=== PATIENT | female | born 1950 | race Caucasian/White ===

== ENCOUNTER → 2019-01-05 | Outpatient (CLI) | payer OTHER ==
[~2019-01-05] MED LIST: ANACIN; CLOB.05TC; DESO.05TCA; ESTR2 PO; FISH1000 PO; Fiorinal Capsu1 EACH; GARLIC PO; MEDR2.5 PO; METROGEL55 GM; MOVE FREE JOIN1 EACH; MULTIPLE VITAMIN; NABU750 PO; NORITATE; OMEPRAZOLE MAGN20 MG PO; PROP60 PO; SULFACETAMIDE; TURMERIC; [UNRECOGNIZED DRUG - OTHER]
[2019-01-07 15:07] LABS: HPV 16 Negative (Negative); HPV 18 Negative (Negative); HPV OTHER HR TYPES Negative (Negative)
== END | disposition home or self-care (01) ==
LOC: LAB SHORT 15:51 → LAB 15:51
PROVIDERS: Nurse Practitioner Women's Health
DX: Z12.4 Encounter for screening for malignant neoplasm of cervix (principal); Z91.89 Other specified personal risk factors, not elsewhere classified
CPT/HCPCS: 87624; G0123

== ENCOUNTER 2021-10-14 23:12 | Inpatient (IN) | payer OTHER ==
[~2021-10-14] VITALS: Ht 170.2 cm; Wt 114.9 kg
[~2021-10-14 23:12] MED LIST changes: +FAMO20 PO
[2021-10-15 00:23] LABS: BASOPHILS PERCENT AUTO 1 % (0-2); EOSINOPHILS ABSOLUTE AUTO 0.07 K/mm3 (0.00-0.68); EOSINOPHILS PERCENT AUTO 0 % (0-6); Hematocrit 50.9 % (33.0-51.0); Hemoglobin 15.2 g/dL (11.5-16.0); IMMATURE GRAN ABSOLUTE AUTO 0.38 K/mm3 (0.00-0.10); IMMATURE GRAN PERCENT AUTO 2 % (0-1); LYMPHOCYTES ABSOLUTE AUTO 1.44 K/mm3 (0.84-5.20); LYMPHOCYTES PERCENT AUTO 7 % (21-46); MONOCYTES ABSOLUTE AUTO 1.69 K/mm3 (0.16-1.47); MONOCYTES PERCENT AUTO 8 % (4-13); Mean Corpuscular HGB 29.3 pg (26.0-34.0); Mean Corpuscular HGB Conc 29.9 g/dL (31.5-36.5); Mean Corpuscular Volume 98 fL (80-100); NEUTROPHILS ABSOLUTE AUTO 16.43 K/mm3 (1.96-9.15); NEUTROPHILS PERCENT AUTO 82 % (41-73); NRBC ABSOLUTE 0.11 K/mm3 (0.00-0.02); NRBC Auto 0.5 /100 WBC (0.0-0.2); RDW Coefficient Variation 15.2 % (11.7-14.2); RDW Standard Deviation 55.1 fL (35.1-46.3); Red Blood Cell Count 5.19 M/mm3 (3.80-5.20); White Blood Cell Count 20.11 K/mm3 (4.00-11.30)
[2021-10-15 00:38] LABS: Albumin, Blood 2.4 g/dL (3.4-5.0); Albumin/Globulin Ratio 0.5 (0.8-1.8); Bilirubin, Total 1.1 mg/dL (0.1-1.0); Bun/Creatinine Ratio 29.7 (12.0-20.0); Calcium, Blood 9.5 mg/dL (8.5-10.1); Creatinine, Blood 2.59 mg/dL (0.40-1.00); Globulin, Blood 4.6 g/dL (2.2-4.0); Potassium, Blood 4.2 mmol/L (3.5-5.5)
[2021-10-15 00:40] LABS: Mean Platelet Volume 13.3 fL (9.1-12.4); Platelet Count 118 K/mm3 (150-400)
[2021-10-15 01:00] LABS: Creatine Kinase MB 6.8 ng/mL (0.0-3.6); Creatine Kinase MB Index 1.6 (0.0-4.0)
[2021-10-15 01:20] LABS: Source, Urine Straight Cath
[2021-10-15 01:26] LABS: Appearance, Urine Hazy (Clear); Blood, Urine 1+ (Neg); Color, Urine Yellow (P-Yellow); Glucose Qualitative, Urine Neg (Neg); Ketones, Urine 1+ (Neg); Leukocyte Esterase, Urine 1+ (Neg); Nitrite, Urine Neg (Neg); Protein, Urine 1+ (Neg); Specific Gravity, Urine 1.025 (1.003-1.022); Urobilinogen, Urine 1+ (Normal)
[2021-10-15 01:31] LABS: Bilirubin, Urine 1+ (Neg)
[2021-10-15 01:39] LABS: Bacteria Many /hpf; Red Blood Cells, Urine 0-2 /hpf (0-2); Squamous Epithelial Cells Many /hpf (Few)
[2021-10-15 04:39] LABS: BASOPHILS ABSOLUTE AUTO 0.06 K/mm3 (0.00-0.23); BASOPHILS PERCENT AUTO 0 % (0-2); EOSINOPHILS PERCENT AUTO 0 % (0-6); Hematocrit 45.8 % (33.0-51.0); Hemoglobin 13.3 g/dL (11.5-16.0); IMMATURE GRAN ABSOLUTE AUTO 0.29 K/mm3 (0.00-0.10); IMMATURE GRAN PERCENT AUTO 2 % (0-1); LYMPHOCYTES ABSOLUTE AUTO 1.71 K/mm3 (0.84-5.20); LYMPHOCYTES PERCENT AUTO 9 % (21-46); MONOCYTES ABSOLUTE AUTO 1.59 K/mm3 (0.16-1.47); MONOCYTES PERCENT AUTO 9 % (4-13); Mean Corpuscular HGB 28.8 pg (26.0-34.0); Mean Corpuscular Volume 99 fL (80-100); NEUTROPHILS ABSOLUTE AUTO 14.68 K/mm3 (1.96-9.15); NEUTROPHILS PERCENT AUTO 80 % (41-73); NRBC ABSOLUTE 0.05 K/mm3 (0.00-0.02); NRBC Auto 0.3 /100 WBC (0.0-0.2); Platelet Count 116 K/mm3 (150-400); RDW Coefficient Variation 15.4 % (11.7-14.2); RDW Standard Deviation 56.3 fL (35.1-46.3); Red Blood Cell Count 4.62 M/mm3 (3.80-5.20); White Blood Cell Count 18.33 K/mm3 (4.00-11.30)
[2021-10-15 04:42] LABS: Mean Platelet Volume 13.5 fL (9.1-12.4)
[2021-10-15 05:01] LABS: Bun/Creatinine Ratio 31.7 (12.0-20.0); Calcium, Blood 8.8 mg/dL (8.5-10.1); Creatinine, Blood 2.68 mg/dL (0.40-1.00); Potassium, Blood 3.9 mmol/L (3.5-5.5)
--- NOTE | 2021-10-15 05:57 | NUR ---
PATIENT TRANSFER FROM PCU 10 VIA BED. PATIENT SLEEPING AWAKENS TO SLIGHT STIMULI. WHEN AWAKE ANSWERING QUESTIONS APPROPRIATELY , YET HAS SLIGHT CONFUSION AT TIMES. FALLS TO SLEEP EASILY WHEN UNDISTURBED. PATIENT TRANSFERRED TO ICU BED USING SLIDER SHEET AND PLACED ON ICU MONITORS. LEVOPHED INFUSING 3 MCG FOR HYPOTENSION. BED PADDED FOR WEEPING WOUNDS, UNABLE TO PLACE DRESSING TO WOUNDS DUE TO SIZE AND AREA ON BODY. D5W AT 125 CC/HR INFUSING NEXT CHEM 0800
--- NOTE | 2021-10-15 07:07 | NUR ---
DOCTOR BURDEN IN TO SEE PATIENT, STAT RENAL PANEL AND MAG OBTAINED PLAN TO CALL RESULTS TO DOCTOR BURDEN
--- NOTE | 2021-10-15 07:13 | NUR ---
ER-PCU-ICU PT INITIALLY TX TO PCU 10 FROM ER. TX VIA SLIDER SHEET. PT ALERT AND ORIENTED TO PERSON, PLACE AND YEAR BUT CONFUSED REGARDING THE LAST DAYS/ WEEK EVENTS. PT PALE, TACHYPNEIC, SLIGHTLY HYPOTENSIVE, MILDLY FEBRILE, AND OVERALL IN VERY POOR CONDITION. SEE CHART FOR FULL EXTENT OF WOUNDS/ ULCERS/ RASH. PTS MOUTH EXTREMELY DRY, PLAQUE COVERED. PT UNSURE OF LAST TIME SHE HAD FOOD/ DRINK, ALSO UNSURE OF HOW LONG SHE WAS DOWN AT HOME. PT HAD 22 GA IV IN LEOBARDO THAT HAD INFILTRATED. MULTIPLE NURSES ATTEMPTED PERIPHERAL ACCESS WELL POWERGLIDE WITHOUT SUCCESS. DR UNDERWOOD NOTIFIED FOR CENTRAL LINE. AFTER CL WAS ESTABLISHED PTS BP CONTINUE TO DROP, MAPS IN LOW 50'S. PT ALSO BECOMING MORE TACHYPNEIC, FEBRILE, AND PAINFUL. LOW DOSE LEVOPHED INITIATED IN PCU WHILE AWAITING ICU BED. PT TX TO ICU BED 4. AFTER TX PTS SISTER NOEL NOTIFIED OF PT CONDITION. SHE INFORMED THIS NURSE THAT PT HAD BEEN DIFFICULT TO UNDERSTAND FOR THE PAST COUPLE DAYS BUT DID NOT ADMIT TO BEING DOWN AT HOME UNTIL YESTERDAY AFTERNOON WHEN EMS WAS NOTIFIED. PER ER NURSE REPORT PT WAS COVERED IN FECES AND URINE UPON ARRIVAL, EVIDENTLY DOWN AT HOME FOR UNKNOWN PERIOD OF TIME. ROOM
[2021-10-15 07:21] LABS: Magnesium, Blood 3.3 mg/dL (1.6-2.4)
[2021-10-15 07:26] LABS: Anion Gap 7 mmol/L (6-16); Blood Urea Nitrogen 89 mg/dL (8-24); Bun/Creatinine Ratio 30.5 (12.0-20.0); CO2, Blood 27 mmol/L (21-32); Calcium, Blood 8.6 mg/dL (8.5-10.1); Chloride, Blood 134 mmol/L (98-108); Creatinine, Blood 2.92 mg/dL (0.40-1.00); Glomerular Filtration Rate 17 (60-); Glucose, Blood 169 mg/dL (70-99); Phosphorus, Blood 4.2 mg/dL (2.5-4.9); Potassium, Blood 3.6 mmol/L (3.5-5.5); Sodium, Blood 168 mmol/L (136-145)
[2021-10-15 09:35] LABS: Bun/Creatinine Ratio 32.3 (12.0-20.0); Calcium, Blood 8.2 mg/dL (8.5-10.1); Creatinine, Blood 2.88 mg/dL (0.40-1.00); Potassium, Blood 3.5 mmol/L (3.5-5.5)
[2021-10-15 11:56] LABS: Bun/Creatinine Ratio 31.6 (12.0-20.0); Calcium, Blood 8.6 mg/dL (8.5-10.1); Creatinine, Blood 2.94 mg/dL (0.40-1.00); Potassium, Blood 3.2 mmol/L (3.5-5.5)
--- NOTE | 2021-10-15 12:22 | NUR ---
NAOMI WAS VERY ENGAGING EARLIER IN THE DAY, SHE WAS PLEASANT AND COOPERATIVE. AT THE NOON HOUR WHEN SHE WAS REPOSITIONED SHE WAS THREATENING AND AGGRESSIVE. SHE HAS BEEN SLEEPING ALOT TODAY. REFUSED HER LUNCH. CONTINUES ON THE NOREPI TO TITRATE TO MAP>65. CURRENTLY AT 6MCG/MIN. D5 @ 100ML/HR.
[2021-10-15 13:25] LABS: Magnesium, Blood 3.2 mg/dL (1.6-2.4)
[2021-10-15 13:34] LABS: Anion Gap 9 mmol/L (6-16); Blood Urea Nitrogen 98 mg/dL (8-24); Bun/Creatinine Ratio 34.6 (12.0-20.0); CO2, Blood 25 mmol/L (21-32); Calcium, Blood 8.8 mg/dL (8.5-10.1); Chloride, Blood 127 mmol/L (98-108); Creatinine, Blood 2.83 mg/dL (0.40-1.00); Glomerular Filtration Rate 18 (60-); Glucose, Blood 256 mg/dL (70-99); Phosphorus, Blood 3.7 mg/dL (2.5-4.9); Potassium, Blood 3.2 mmol/L (3.5-5.5); Sodium, Blood 161 mmol/L (136-145)
--- NOTE | 2021-10-15 18:19 | NUR ---
PT'S PANNUS DRESSED WITH ADAPTIC AND ABD DRESSINGS, SKIN IS MOIST AND RED, MICROBLEEDING IN SPOTS, CATHETER CARE DONE, INNER THIGH OF LEFT LEG DRESSED WITH ADAPTIC AND ABD WELL. FEET IN ANKLE BOOTS. PT AWAKENED AND CHATTED DURING THE DRESSING CHANGE, COMPLAINTS OF JUST BEING REALLY TIRED. NOREPI @ 6MCG/MIN, D5 @ 100, LABS DRAWN FOR 1800, WILL CALL TO . MINIMAL URINE OUTPUT THIS SHIFT, SEDIMENT IN TUBING. (200ML OUT)
[2021-10-15 18:20] LABS: Potassium, Blood 3.3 mmol/L (3.5-5.5)
--- NOTE | 2021-10-15 18:45 | NUR ---
CALL TO WITH RESULTS OF 1800 LABS, ORDERS RECEIVED. TOLD HIM OF HER URINE OUTPUT.
--- NOTE | 2021-10-15 23:12 | NUR ---
SHIFT ASSESSMENT ASSUMED CARE OF PT @ 1900. PT SLEEPING IN ROOM, AROUSES WITH VERBAL STIMULI. ALERT AND ORIENTED, FOLLOWING COMMANDS. ABLE MOVE LEGS BUT STRUGGLING TO MOVE TOES/FEET. C/O PAIN TO BACK/ HIPS WITH TURNS, DENIES PAIN AT REST. LEVOPHED GTT INFUSING, NOW @ 4MCG/MIN c MAP >65. ABD SOFT, DISTENDED. SKIN IN POOR CONDITION, SEE PHOTOS IN CHART. TEMP PROBE WALSH PATENT, AFEBRILE. NO BM THUS FAR. PT TOLERATING WATER, WILL TRANSITION DIET APPROPRIATE. CHEMISTRY DRAWN, SENT TO LAB, AWAITING RESULTS TO CONTACT DR. LEWIS. WILL MONITOR CLOSELY.
[2021-10-15 23:30] LABS: Potassium, Blood 3.4 mmol/L (3.5-5.5)
[2021-10-16 04:45] LABS: Hematocrit 41.7 % (33.0-51.0); Hemoglobin 12.3 g/dL (11.5-16.0)
[2021-10-16 04:59] LABS: Albumin, Blood 1.8 g/dL (3.4-5.0); Anion Gap 5 mmol/L (6-16); Blood Urea Nitrogen 73 mg/dL (8-24); Bun/Creatinine Ratio 37.8 (12.0-20.0); CO2, Blood 27 mmol/L (21-32); CPK Creatine Kinase 613 U/L (26-193); Chloride, Blood 121 mmol/L (98-108); Creatinine, Blood 1.93 mg/dL (0.40-1.00); Glomerular Filtration Rate 28 (60-); Glucose, Blood 143 mg/dL (70-99); Phosphorus, Blood 2.3 mg/dL (2.5-4.9); Potassium, Blood 3.7 mmol/L (3.5-5.5); Sodium, Blood 153 mmol/L (136-145)
--- NOTE | 2021-10-16 06:17 | NUR ---
SHIFT SUMMARY PT ALERT AND ORIENTED, MORE SENSIBLE THIS AM. SHE SEEMS TO BE CLEARING UP, INQUIRING ABOUT HER WOUNDS WELL EVENTS LEADING UP TO HER WORSENING CONDITION. WOUNDS CLEANSED AND REDRESSED. PT REMAINS ON LEVOPHED, CURRENTLY 3MCG/MIN c MAP >65. TEMP PROBE DRAINING SCOTTIE URINE, OUTPUT INCREASING, AFEBRILE. NO BM. REPORT TO ONCOMING NURSE.
--- NOTE | 2021-10-16 10:30 | NUR ---
ANTOINETTERN FROM WOUND CENTER, MADY PAYNE,CPT AND I WERE ABLE TO TURN AND REPOSITION DONTAE WHILE ASSESSING HER WOUNDS, SHE TOLERATED THE MOVEMENT AND THE EXAM VERY WELL. SHE WAS HELPFUL POSSIBLE. ORANGE PASTE AND MICONAZOLE POWDER WAS SMEARED THROUGHOUT THE PANNUS AND THE INNER THIGHS, ADAPTIC AND ABD DRESSINGS WERE PLACED TO HELP KEEP THE SKIN OFF OF SKIN. DONTAE EXPRESSED THAT THE PASTE AND THE POWDER "FELT GOOD". GUEST SERVICES REPRESENTATIVE RECOMMENDS ADVANCING DIET AND ADDING CORINA THERAPY.
--- NOTE | 2021-10-16 10:58 | NUR ---
DONTAE'S SISTER NOEL HAS CALLED AND IS VISITING VIA PHONE WITH HER.
--- NOTE | 2021-10-16 11:40 | NUR ---
WOUND CARE. ANTIFUNGAL AND BARRIER CREAM TO PANNUS AND LOYD AREA. SPOKE WITH DR. CAPPS HIS PLAN IS TO DEBRIDE BEDSIDE OR SX CONSULT TO BLE AND BUTTOCK WOUNDS
[2021-10-16 13:29] LABS: Potassium, Blood 3.4 mmol/L (3.5-5.5)
--- NOTE | 2021-10-16 14:57 | NUR ---
WAS HERE TO DEBRIDE THE ANKLE WOUNDS, PATIENT SLEPT THROUGH THE ENTIRE PROCESS, WOUNDS WERE DRESSED WITH XEROFORM AND NON ADHERENT PAD FOLLOWED BY SRAVANTHI. HE ASKED THAT WE CHANGE THE DRESSINGS TWICE DAILY. LOOKING TO GET ROLANDO FROM WOUND CLINIC FOR THERAPY TOMORROW. PLAN IS TO ATTEMPT SOME DEBRIDEMENT OF THE BUTTOCKS THEN.
--- NOTE | 2021-10-16 17:28 | NUR ---
DONTAE IS HAVING A BIT OF TROUBLE WITH HER STOMACH, ORDERED PEPCID BID. PT GIVEN REGULAR DINNER TONIGHT, SHE IS STATING THAT SHE IS SO DRY THAT IT IS HARD TO MAKE SALIVA TO CHEW HER FOOD. SHE IS TAKING IN WATER AND SOME PEPSI WHEN SHE ISN'T SLEEPING. MOUTH MOISTURE AND CHAPSTICK GIVEN FOR HER USE. SHE IS CURRENTLY ON SB WITH THE LEVOPHED, D5 @ 75 ML/HR. SHE IS MAKING URINE, NEARLY 3X WHAT WE HAD IN ONE SHIFT YESTERDAY. COLOR STILL PALE, BUT IMPROVING. MENTATION AND CLARITY ARE IMPROVED TODAY WELL. SHE DOES STILL ADMIT TO BEING TIRED.
--- NOTE | 2021-10-16 20:57 | NUR ---
ASSUMED CARE PT WAS SLEEPING AND WOKE EASILY. PT STATED SHE WAS NOT IN ANY PAIN. PT'S HR IS IN THE 80-90S, SBP IN THE 100'S WITH MAP >65. CLEAR LUNG SOUNDS, SPO2 >92%. PT RESPONDED APPROPRIATELY WITH SOME SLURRING AND WAS ALERT AND ORIENTED X4.
--- NOTE | 2021-10-16 22:21 | NUR ---
UPDATE CHANGED DRESSINGS ON ANKLE WITH MEDIHONEY, NON ADHESIVE, KERLIX, AND COBAND. CALAZIME AND ANTIFUNGAL POWDER APPLIED UNDER PANNUS WITH ABD'S OVER AREA.
--- NOTE | 2021-10-16 23:11 | NUR ---
CALLED DR LEWIS ABOUT SODIUM LEVELS AND RECIEVED VERBAL ORDER TO TITRATE DEX DRIP FROM 75 DOWN TO 50
[2021-10-17 04:04] LABS: Hematocrit 35.7 % (33.0-51.0); Hemoglobin 10.8 g/dL (11.5-16.0)
[2021-10-17 04:22] LABS: Albumin, Blood 1.6 g/dL (3.4-5.0); Anion Gap 2 mmol/L (6-16); Blood Urea Nitrogen 46 mg/dL (8-24); Bun/Creatinine Ratio 49.5 (12.0-20.0); CO2, Blood 29 mmol/L (21-32); Calcium, Blood 7.8 mg/dL (8.5-10.1); Chloride, Blood 115 mmol/L (98-108); Creatinine, Blood 0.93 mg/dL (0.40-1.00); Glomerular Filtration Rate 67 (60-); Glucose, Blood 132 mg/dL (70-99); Magnesium, Blood 2.6 mg/dL (1.6-2.4); Potassium, Blood 3.9 mmol/L (3.5-5.5); Sodium, Blood 146 mmol/L (136-145)
--- NOTE | 2021-10-17 06:35 | NUR ---
SHIFT SUMMARY PT IS ALERT AND ORIENTED X4. PT'S HR HAS BEEN IN THE 80-90S THROUGHOUT THE NIGHT. SBP IN THE 110S MAP >65. PT SPO2 >92% ON RA. SHE HAD SOME PEPSI AT THE BEGINNING OF THE NIGHT AND HAS BEEN DRINKING WATER THROUGHOUT THE NIGHT. PT EXPRESSED THAT SHE FELT SOME TINGLING IN HER LEGS WHILE REPOSITIONING.
--- NOTE | 2021-10-17 14:07 | NUR ---
ASSUMED CARE OF PT @ 0700 PT SLEEPING IN ROOM. D5W RUNNING @ 50 MLS/HR. NO VISITORS IN THE ROOM YET TODAY. WALSH CATH DRAINING TO GRAVITY. - BURDEN TO ROOM @ 1015 TO PERFORM DEBRIDEMENT TO LEFT BUTTOCKS. PT PROPERLY MEDICATED FOR THE PROCEDURE PER DR ORDERS (SEE EMAR). WOUND PACKED WITH CALCIUM ALGINATE, ABD PAD OVER AND FAOM PAD TO SECURE.
--- NOTE | 2021-10-17 17:38 | NUR ---
END OF SHIFT SUMMARY A/O X4. SLURRED SPEECH. LSCBT, DIMINISHED IN LOWER BILATERALLY. PT COMPLAINS OF PAINFUL BLADDER SPASMS WITH URGE TO URINATE. WALSH CATHETER DRAINING TO GRAVITY. NO BOWEL MOVEMENT THIS SHIFT. WOUND DEBRIDEMENT DONE TO LEFT BUTTOCKS. WOUND PACKED WITH CALCIUM ALGINATE WITH ABD DRESSING TO COVER AND FOAM STICKY DRESSING TO SECURE. D5W RUNNING AT 50 MLS/HR.
--- NOTE | 2021-10-17 19:00 | NUR ---
ASSUMED CARE OF PATIENT AT THIS TIME. PATIENT RESTING. TURNED PATIENT WITH ASSIST AND CHANGED DRESSINGS. PATIENT TOLERATED WITH SOME PAIN. TYLENOL GIVEN PER EMAR. VSS MT TORRES RN
[2021-10-18 04:24] LABS: Hematocrit 34.6 % (33.0-51.0); Hemoglobin 10.3 g/dL (11.5-16.0)
[2021-10-18 04:48] LABS: Albumin, Blood 1.5 g/dL (3.4-5.0); Anion Gap 4 mmol/L (6-16); Blood Urea Nitrogen 34 mg/dL (8-24); Bun/Creatinine Ratio 37.3 (12.0-20.0); CO2, Blood 29 mmol/L (21-32); Calcium, Blood 8.2 mg/dL (8.5-10.1); Chloride, Blood 114 mmol/L (98-108); Creatinine, Blood 0.91 mg/dL (0.40-1.00); Glomerular Filtration Rate 68 (60-); Glucose, Blood 121 mg/dL (70-99); Magnesium, Blood 2.6 mg/dL (1.6-2.4); Phosphorus, Blood 2.1 mg/dL (2.5-4.9); Potassium, Blood 3.8 mmol/L (3.5-5.5); Sodium, Blood 147 mmol/L (136-145)
--- NOTE | 2021-10-18 05:33 | NUR ---
SHIFT SUMMARY NO EVENTS THROUGHOUT SHIFT. PATIENT RESTED. TURNED Q2. VSS, WOUND DRESSING CHANGED PER ORDER. ORDERS RECIEVED TO TRANSFER PATIENT TO PCU. AZALEA TORRES RN
--- NOTE | 2021-10-18 18:23 | NUR ---
SHIFT SUMMARY NO ACUTE EVENTS THIS SHIFT, VSS. PT ALERT AND COOPERATIVE WITH CARE. PT CAN BE FORGETFUL AT TIMES. PT UP TO EDGE OF BED FOR LUNCH. IV FLUIDS RUNNING PER EMAR. DR. CAPPS AT BEDSIDE TODAY FOR WOUND CARE, DRESSING CHANGE AND DEBRIDEMENT. MEDIHONEY AND CALCIUM ALGINATE APPLIED TO WOUNDS AND COVERED WITH NON-ADHERENT PADS AND ABD PADS. PT WENT TO IMAGING THIS EVENING, RETURNED TO UNIT WITHOUT EVENT. WALSH DRAINING TO GRAVITY. PO WATER INTAKE ENCOURAGED. PT REPOSITIONED BY STAFF THROUGHOUT SHIFT.
[2021-10-19 05:45] LABS: Hematocrit 33.4 % (33.0-51.0); Hemoglobin 10.5 g/dL (11.5-16.0)
[2021-10-19 05:56] LABS: Albumin, Blood 1.6 g/dL (3.4-5.0); Anion Gap 5 mmol/L (6-16); Blood Urea Nitrogen 28 mg/dL (8-24); Bun/Creatinine Ratio 33.7 (12.0-20.0); CO2, Blood 29 mmol/L (21-32); Calcium, Blood 8.2 mg/dL (8.5-10.1); Chloride, Blood 109 mmol/L (98-108); Creatinine, Blood 0.83 mg/dL (0.40-1.00); Glomerular Filtration Rate 76 (60-); Glucose, Blood 113 mg/dL (70-99); Magnesium, Blood 2.2 mg/dL (1.6-2.4); Phosphorus, Blood 2.3 mg/dL (2.5-4.9); Potassium, Blood 3.6 mmol/L (3.5-5.5); Sodium, Blood 143 mmol/L (136-145)
--- NOTE | 2021-10-19 06:02 | NUR ---
SHIFT SUMMARY Assumed care of pt at 1900. A/Ox4. C/o R flank/hip pain and general low buttock pain. Maintains over 95% on RA, LS clear on top and dim at bases. RAHMAN. SR 70's on tele. VSS. 3+ pitting edema bl pedals, 2+ for ble and trace generalized edema. Hypoactive bowel tones. Denies N/V, CP/pressure. Granda draining to gravity clear yellow urine. Extensive perianal, buttock, and pannus wounds - see chart for photos. Wound care BID per orders to buttocks, perianal, pannus, and ankles, medicated with pain med PRN prior with good relief. Q2 turns from side to side, Kpad applied to low back to help with spasms. Will report to dayshift JOSY
[2021-10-19 12:39] LABS: Influenza A, PCR NEGATIVE (NEGATIVE); Influenza B, PCR NEGATIVE (NEGATIVE); Resp Syncytial Virus, PCR NEGATIVE (NEGATIVE); SARS-Cov-2 (COVID-19) PCR, MMC NEGATIVE (NEGATIVE)
--- NOTE | 2021-10-19 15:24 | NUR ---
WOUND CARE: WOUND CARE HAS BEEN COMPLETED PER ORDERS W/ASSISTANCE OF ANTOINETTE (WOUND CARE NURSE). PT TOLERATES WELL, REPOSITIONED ON RIGHT SIDE, RESTING QUIETLY WITH EYES CLOSED.
--- NOTE | 2021-10-19 16:01 | NUR ---
ASSUMED CARE: REPORT RECIEVED FROM MARVIN FERRIS. PT RESTING QUIETLY AT THIS TIME. NO ACUTE NEEDS OR CONCERNS.
--- NOTE | 2021-10-19 16:05 | NUR ---
SHIFT SUMMARY: PT LETHARGIC AT TIMES, AROUSES EASILY TO STAFF IN ROOM, ORIENTEDx4, COOPERATIVE W/CARE. O2 SATS MAINTAINED >93% ON RA. SR IN 90s ON MONITOR. TEMP WALSH PATENT, DRAINING YELLOW COLORED URINE TO GRAVITY. PT W/EXTENSIVE WOUNDS, PHOTOS IN CHART, WOUND CARE COMPLETED W/PLAN FOR I&D OF PERIANAL AREA TOMORROW, PT TO BE NPO AT MIDNIGHT. PT REPOSITIONED PER PROTOCOL. AT THIS TIME, PT RESTING QUIETLY IN BED, CALL LIGHT WITHIN REACH. REPORT GIVEN TO JOSY PRIETO TO ASSUME CARE OF PT.
--- NOTE | 2021-10-19 18:44 | NUR ---
SHIFT SUMMARY: WOUND CARE PERFORMED BY EMTS THIS SHIFT. NEW ORDERS IN PLACE TO BE STARTED THIS EVENING. I AND D TO BE DONE TOMORROW. PT DENIES NEEDS OR CONCERNS AT THIS TIME.
[2021-10-20 03:33] LABS: Hematocrit 31.7 % (33.0-51.0); Hemoglobin 9.8 g/dL (11.5-16.0); Mean Corpuscular HGB 29.5 pg (26.0-34.0); Mean Corpuscular HGB Conc 30.9 g/dL (31.5-36.5); Mean Corpuscular Volume 96 fL (80-100); NRBC ABSOLUTE 0.06 K/mm3 (0.00-0.02); NRBC Auto 0.7 /100 WBC (0.0-0.2); Platelet Count 79 K/mm3 (150-400); RDW Coefficient Variation 14.4 % (11.7-14.2); RDW Standard Deviation 49.1 fL (35.1-46.3); Red Blood Cell Count 3.32 M/mm3 (3.80-5.20); White Blood Cell Count 9.19 K/mm3 (4.00-11.30)
[2021-10-20 03:50] LABS: Albumin, Blood 1.5 g/dL (3.4-5.0); Anion Gap 3 mmol/L (6-16); Blood Urea Nitrogen 23 mg/dL (8-24); Bun/Creatinine Ratio 30.7 (12.0-20.0); CO2, Blood 30 mmol/L (21-32); Calcium, Blood 8.1 mg/dL (8.5-10.1); Chloride, Blood 111 mmol/L (98-108); Creatinine, Blood 0.75 mg/dL (0.40-1.00); Glomerular Filtration Rate 86 (60-); Glucose, Blood 109 mg/dL (70-99); Magnesium, Blood 2.1 mg/dL (1.6-2.4); Phosphorus, Blood 2.6 mg/dL (2.5-4.9); Potassium, Blood 3.5 mmol/L (3.5-5.5); Sodium, Blood 144 mmol/L (136-145)
[2021-10-20 04:10] LABS: BAND PERCENT MAN 15 % (0-8); BASOPHILS PERCENT MAN 0 % (0-2); EOSINOPHILS ABSOLUTE MAN 0.18 K/mm3 (0.00-0.68); EOSINOPHILS PERCENT MAN 2 % (0-6); LYMPHOCYTES % ATYPICAL MANUAL 1 % (0-0); LYMPHOCYTES ABSOLUTE MAN 1.56 K/mm3 (0.84-5.20); LYMPHOCYTES PERCENT MAN 16 % (21-46); MONOCYTES ABSOLUTE MAN 0.45 K/mm3 (0.16-1.47); MONOCYTES PERCENT MAN 5 % (4-13); MYELOCYTE ABSOLUTE MAN 0.09 K/mm3 (0.00-0.00); MYELOCYTE PERCENT MAN 1 % (0-0); NEUTROPHILS ABSOLUTE MAN 6.89 K/mm3 (1.96-9.15); SEG NEUTROPHILS PERCENT MAN 60 % (41-73); TOTAL CELLS COUNTED 100
--- NOTE | 2021-10-20 06:02 | NUR ---
SHIFT SUMMARY Patients buttock and pannus wounds were cleaned and redressed per orders. VSS. Slept for most of the night. NPO since midnight. No acute changes. Will report to dayshift RN.
--- NOTE | 2021-10-20 17:26 | NUR ---
SHIFT SUMMARY: PT CONTINUES A&Ox4, MAINTAINS O2 SATS >93% ON RA WHILE AWAKE AND 2L NC WHILE ASLEEP. SR/ST ON MONITOR W/RATE 90-100. PT NPO UNTIL DR CROW TO BEDSIDE FOR EVAL. PER DR CROW, NO I&D FOR TODAY, CT ORDER PLACED FOR TOMORROW AM AND PT TO BE NPO AT MIDNIGHT FOR POTENTIAL I&D TOMORROW. BUTTOCKS AND PANNUS WOUNDS CLEANED/TREATED/DRESSINGS CHANGED PER ORDERS. PT REPOSITIONED PER PROTOCOL. AT THIS TIME, PT RESTING IN BED WITH DINNER TRAY. WILL CONTINUE TO MONITOR AND TREAT ACCORDINGLY UNTIL CHANGE OF SHIFT.
[2021-10-21 05:18] LABS: Hematocrit 32.8 % (33.0-51.0); Mean Corpuscular HGB 29.4 pg (26.0-34.0); Mean Corpuscular HGB Conc 30.5 g/dL (31.5-36.5); Mean Corpuscular Volume 97 fL (80-100); Mean Platelet Volume 12.2 fL (9.1-12.4); NRBC ABSOLUTE 0.08 K/mm3 (0.00-0.02); NRBC Auto 0.9 /100 WBC (0.0-0.2); Platelet Count 105 K/mm3 (150-400); RDW Coefficient Variation 14.6 % (11.7-14.2); RDW Standard Deviation 50.6 fL (35.1-46.3); White Blood Cell Count 9.37 K/mm3 (4.00-11.30)
[2021-10-21 05:39] LABS: Albumin, Blood 1.6 g/dL (3.4-5.0); Albumin/Globulin Ratio 0.4 (0.8-1.8); Bilirubin, Total 0.4 mg/dL (0.1-1.0); Bun/Creatinine Ratio 32.3 (12.0-20.0); Calcium, Blood 8.4 mg/dL (8.5-10.1); Creatinine, Blood 0.65 mg/dL (0.40-1.00); Globulin, Blood 3.9 g/dL (2.2-4.0); Magnesium, Blood 1.9 mg/dL (1.6-2.4); Phosphorus, Blood 2.6 mg/dL (2.5-4.9); Potassium, Blood 3.4 mmol/L (3.5-5.5); Total Protein, Blood 5.5 g/dL (6.4-8.2)
[2021-10-21 06:06] LABS: BAND PERCENT MAN 17 % (0-8); BASOPHILS PERCENT MAN 0 % (0-2); EOSINOPHILS ABSOLUTE MAN 0.09 K/mm3 (0.00-0.68); EOSINOPHILS PERCENT MAN 1 % (0-6); LYMPHOCYTES ABSOLUTE MAN 0.74 K/mm3 (0.84-5.20); LYMPHOCYTES PERCENT MAN 8 % (21-46); METAMYELOCYTE ABSOLUTE MAN 0.37 K/mm3 (0.00-0.00); METAMYELOCYTE PERCENT MAN 4 % (0-0); MONOCYTES ABSOLUTE MAN 0.74 K/mm3 (0.16-1.47); MONOCYTES PERCENT MAN 8 % (4-13); MYELOCYTE ABSOLUTE MAN 0.09 K/mm3 (0.00-0.00); MYELOCYTE PERCENT MAN 1 % (0-0); SEG NEUTROPHILS PERCENT MAN 61 % (41-73); TOTAL CELLS COUNTED 100
--- NOTE | 2021-10-21 06:12 | NUR ---
Patient slept for most of the night. NPO at midnight. Dressings changed per orders, wounds with purulent sanguineous drainage. VSS. 2L NC while asleep, CPAP order placed tonight as patients home CPAP is without its power cord. Patient has not had BM in days. CT scan this morning. No acute changes. Will report to dayshift RN.
--- NOTE | 2021-10-21 17:48 | NUR ---
PT SUMMARY: PT REMAINED ALERT AND ORIENTED X3, ANSWERS QUESTIONS APPROPRIATELY REMEMBERED WHAT BROUGHT HER TO THE HOSPITAL, ABLE TO MAKE NEEDS KNOWN. VITALS HAS BEEN STABLE FOR THE SHIFT, HRR ST 100'S, BP SYSTOLIC 120'S, SATS ABOVE 90% ON RA, WEARS CPAP AT NIGHT. PT DENIES CHEST PAIN/PRESSURE, HAS SOME HIP/BACK PAIN, WOUND PAIN WITH MOVEMENT, PT WAS GIVEN OXYCODONE PO ONCE FOR THE SHIFT PRIOR TO WOUND DRESSING CHANGED AND WAS EFFECTIVE. ALL WOUNDS CLEANSED AND REDRESSED PER ORDERS. CT OF ABDOMEN DONE THIS AM SHOWED NO EVIDENCE OF FLUID COLLECTION TO BE DRAINED ON THE PERIAREAL WOUND. PT HAS BEEN REPOSITONED Q2HRS, HIPS FLOATED IN PILLOWS, HEEL PROTECTORS IN PLACE, NO PROCEDURE DONE TODAY DIET THEN WAS RESUMED, DR CROW CAME AND SAW PT TODAY. PT STARTED ON 1L FLUID RESTRICTION, 24HR UA CATCH FOR UA PROTEIN WAS STARTED. NO OTHER ISSUES REPORTED, PT HAS BEEN NICE AND PLEASANT, CALLS APPROPRIATELY, WILL REPORT TO ONCOMING SHIFT
[2021-10-22 05:12] LABS: Hematocrit 35.2 % (33.0-51.0); Hemoglobin 10.9 g/dL (11.5-16.0); Mean Corpuscular HGB 29.5 pg (26.0-34.0); Mean Corpuscular Volume 95 fL (80-100); Mean Platelet Volume 11.5 fL (9.1-12.4); NRBC ABSOLUTE 0.06 K/mm3 (0.00-0.02); NRBC Auto 0.6 /100 WBC (0.0-0.2); Platelet Count 135 K/mm3 (150-400); RDW Coefficient Variation 15.1 % (11.7-14.2); RDW Standard Deviation 50.6 fL (35.1-46.3); White Blood Cell Count 10.39 K/mm3 (4.00-11.30)
[2021-10-22 05:33] LABS: Albumin, Blood 1.7 g/dL (3.4-5.0); Albumin/Globulin Ratio 0.4 (0.8-1.8); Bilirubin, Total 0.5 mg/dL (0.1-1.0); Bun/Creatinine Ratio 23.1 (12.0-20.0); Calcium, Blood 7.9 mg/dL (8.5-10.1); Creatinine, Blood 0.65 mg/dL (0.40-1.00); Globulin, Blood 4.4 g/dL (2.2-4.0); Magnesium, Blood 2.1 mg/dL (1.6-2.4); Phosphorus, Blood 2.8 mg/dL (2.5-4.9); Potassium, Blood 3.7 mmol/L (3.5-5.5); Total Protein, Blood 6.1 g/dL (6.4-8.2)
--- NOTE | 2021-10-22 05:57 | NUR ---
SHIFT SUMMARY NO ACUTE CHANGES. PT ON DAY/HOME CPAP NOC. VSS. NO BM THIS SHIFT. WALSH CATHETER ON ICE D/T 24 HR COLLECTION. WOUND CARE DONE PER EMAR, DRESSINGS CHANGED. ABX INFUSED PER EMAR. MEDICATED FOR PAIN X1 PRIOR TO WOUND CLEAINING. CALL LIGHT IN REACH.
[2021-10-22 06:02] LABS: BAND PERCENT MAN 5 % (0-8); BASOPHILS PERCENT MAN 0 % (0-2); EOSINOPHILS PERCENT MAN 1 % (0-6); LYMPHOCYTES ABSOLUTE MAN 0.72 K/mm3 (0.84-5.20); LYMPHOCYTES PERCENT MAN 7 % (21-46); METAMYELOCYTE ABSOLUTE MAN 0.31 K/mm3 (0.00-0.00); METAMYELOCYTE PERCENT MAN 3 % (0-0); MONOCYTES ABSOLUTE MAN 0.41 K/mm3 (0.16-1.47); MONOCYTES PERCENT MAN 4 % (4-13); MYELOCYTE PERCENT MAN 2 % (0-0); NEUTROPHILS ABSOLUTE MAN 8.62 K/mm3 (1.96-9.15); SEG NEUTROPHILS PERCENT MAN 78 % (41-73); TOTAL CELLS COUNTED 100
[2021-10-22 10:16] LABS: Protein, Urine Quantitative 22.4 mg/dL (0.0-11.9)
--- NOTE | 2021-10-22 13:16 | NUR ---
UPDATE: PT CONTINUES A&Ox4, MAINTAINS O2 SATS >93% ON RA, SR IN 90s ON MONITOR. 24 HR URINE COLLECTION COMPLETED, TAKEN TO LAB. 1L FLUID RESTRICTION IN PLACE. PT RECEIVES NEW BED ASSIGNMENT IN MEDICAL DEPT. REPORT HAS BEEN GIVEN TO JOSY HASTINGS TO RECEIVE PT. MATILDE NOTIFIED OF NEED FOR WOUND DRESSING CHANGES THIS AFTERNOON. PT TO BE TRANSFERED SOON.
--- NOTE | 2021-10-22 18:18 | NUR ---
SHIFT SUMMARY: RECIEVED REPORT FROM JOSY WONG PCU. PATIENT ARRIVE TO ROOM 329 FROM PCU RM 20 AT 1400. PATIENT A&OX4. ON RA WITH SPO2 OF 93-94% AND DENIES SOB. ON TELE PER REPORT SR IN 90'S. WALSH PATENT AND DRAINING TO GRAVITY WITH YELLOW URINE. FR OF 1000 MLS/DAY. PATIENT WAS SEEN WITH PT TODAY AND DID SOME EXERCISE IN BED. DRESSING CHANGED. PATIENT RECIEVED ONE DOSE OF PRN PAIN MEDICATION AND REPORT SIGN OF RELIEF WITH PAIN. PATIENT ON BEDREST. REPOSITION Q2 TURN AND LEGS ELEVATED ON PILLOWS. BED ALARM FOR SAFETY AND CALL LIGHT WITHIN REACH. WILL GIVE REPORT TO ONCOMING PANCHO FERRIS.
[2021-10-23 05:28] LABS: Hematocrit 37.2 % (33.0-51.0); Hemoglobin 11.3 g/dL (11.5-16.0)
[2021-10-23 05:53] LABS: Albumin, Blood 1.8 g/dL (3.4-5.0); Anion Gap 4 mmol/L (6-16); Blood Urea Nitrogen 20 mg/dL (8-24); Bun/Creatinine Ratio 28.9 (12.0-20.0); CO2, Blood 33 mmol/L (21-32); Calcium, Blood 8.3 mg/dL (8.5-10.1); Chloride, Blood 104 mmol/L (98-108); Creatinine, Blood 0.69 mg/dL (0.40-1.00); Glomerular Filtration Rate 94 (60-); Glucose, Blood 114 mg/dL (70-99); Magnesium, Blood 2.2 mg/dL (1.6-2.4); Potassium, Blood 3.6 mmol/L (3.5-5.5); Sodium, Blood 141 mmol/L (136-145)
--- NOTE | 2021-10-23 07:35 | NUR ---
SHIFT SUMMARY: PATIENT IS A&OX4, REPORTING PAIN IN R HIP, DOWN TO KNEE, INCLUDING KNEE. PATIENT ALSO REPORT DRSG CHANGE IS VERY PAINFULL. "THERE WAS A LOT OF SCREAMING GOING ON. IT WAS TO PAINFUL". PATIENT WAS MOVED TO LIFT ROOM 335. OXYCODONE 10MG WAS GIVEN PRIOR TO DRSG CHANGE WITH GOOD EFFECT. NICO IS PATENT FOR SCOTTIE URINE. VSS, COMPLIANT WITH CPAP,
--- NOTE | 2021-10-23 17:01 | NUR ---
SHIFT SUMMARY PT IS A&O X4 AND PLEASANT. PT WAS ADMITTED FOR SPETIC AND HYPOVOLEMIC SHOCK AFTER BEING FOUND DOWN IN HER HOME. PT HAS CELLULITES IN PERINEAL AREA, DECUBITIS ULCER ON HER BUTTOCKS, AND WOUNDS ON BILATERAL HEALS. ALL DRESSINGS WERE CHANGED TODAY AND WOUND CARE WAS COMPLETED PER MD ORDERS. GIVING PAIN MED BEFORE DRESSING CHANGE HELPS PT TOLERATE ACTIVITY. PT IS ON BEDREST. PT'S CENTERAL LINE WAS DISCONTINUED TODAY AND A POWER GLIDE WAS PLACED IN ISABEL. PT IS ON STRICT I&O'S. PT IS RESTING NOW, WITH CPAP ON DUE TO O2 SATURATION DROPPING TO MID 80'S. CALL LIGHT WITHIN REACH.
--- NOTE | 2021-10-23 17:08 | NUR ---
WOUND CARE PT WAS PREMEDICATED FOR PAIN PRIOR TO WOUND DRSG CHANGE. THE PTS WOUNDS WERE CLAENED WITH THE WOUND ABALONE FISHERMAN AND RINSED WITH STERILE WATER, ALGINATE PADS WERE PLACED ON THE BILATERAL GLUTEUS WOUNDS. COVERED WITH EXUDRY PAD AND TAPED SECURELY USEING MEFIX TAPE. THE PTS PANIS WAS CLEANED AND A MIXTURE OF BARRIER CREAM AND ANTI FUNGAL POWDER WAS APPLIED. PT BILATERAL HEEL DRESSINGS WERE CHANGED CALCIUM ALGINATE PLACED IN THE OPEN WOUNDS. A LARGE CLOSED BLOOD BLISTER WAS NOTICED ON THE LEFT HEEL. THE PT TOLERATED THE WOUND CARE WELL.
[2021-10-24 05:25] LABS: Hematocrit 31.4 % (33.0-51.0); Hemoglobin 9.7 g/dL (11.5-16.0); Mean Corpuscular HGB 29.3 pg (26.0-34.0); Mean Corpuscular HGB Conc 30.9 g/dL (31.5-36.5); Mean Corpuscular Volume 95 fL (80-100); Mean Platelet Volume 11.3 fL (9.1-12.4); NRBC ABSOLUTE 0.04 K/mm3 (0.00-0.02); NRBC Auto 0.4 /100 WBC (0.0-0.2); Platelet Count 146 K/mm3 (150-400); RDW Coefficient Variation 15.4 % (11.7-14.2); RDW Standard Deviation 51.2 fL (35.1-46.3); Red Blood Cell Count 3.31 M/mm3 (3.80-5.20); White Blood Cell Count 9.13 K/mm3 (4.00-11.30)
[2021-10-24 05:56] LABS: Albumin, Blood 1.7 g/dL (3.4-5.0); Anion Gap 5 mmol/L (6-16); Blood Urea Nitrogen 23 mg/dL (8-24); Bun/Creatinine Ratio 39.7 (12.0-20.0); CO2, Blood 32 mmol/L (21-32); Calcium, Blood 8.3 mg/dL (8.5-10.1); Chloride, Blood 102 mmol/L (98-108); Creatinine, Blood 0.58 mg/dL (0.40-1.00); Glomerular Filtration Rate 98 (60-); Glucose, Blood 107 mg/dL (70-99); Potassium, Blood 3.6 mmol/L (3.5-5.5); Sodium, Blood 139 mmol/L (136-145)
[2021-10-24 06:32] LABS: BAND PERCENT MAN 6 % (0-8); BASOPHILS PERCENT MAN 0 % (0-2); EOSINOPHILS ABSOLUTE MAN 0.18 K/mm3 (0.00-0.68); EOSINOPHILS PERCENT MAN 2 % (0-6); LYMPHOCYTES % ATYPICAL MANUAL 1 % (0-0); LYMPHOCYTES ABSOLUTE MAN 1.64 K/mm3 (0.84-5.20); LYMPHOCYTES PERCENT MAN 17 % (21-46); METAMYELOCYTE ABSOLUTE MAN 0.18 K/mm3 (0.00-0.00); METAMYELOCYTE PERCENT MAN 2 % (0-0); MONOCYTES ABSOLUTE MAN 0.82 K/mm3 (0.16-1.47); MONOCYTES PERCENT MAN 9 % (4-13); MYELOCYTE ABSOLUTE MAN 0.09 K/mm3 (0.00-0.00); MYELOCYTE PERCENT MAN 1 % (0-0); SEG NEUTROPHILS PERCENT MAN 62 % (41-73); TOTAL CELLS COUNTED 100
--- NOTE | 2021-10-24 17:28 | NUR ---
PATIENT A/OX4, CALM AND COOPERATIVE WITH CARE. STARTED THE MORNING OUT VERY PAINFUL POST DRESSING CHANGE. FENANYL ORDERED FOR BREAKTHROUGH PAIN AND PATIENT WAS ABLE TO RELAX. VSS, ON RA. CPAP AT [facility] WITH CONTINOUS BIOX. DRESSING CHANGED AGAIN THIS EVENING TO BUTTOCKS. AREA CLEANSED AND CALCIUM ALGINATE PLACED OVER WOUND AND COVERED WITH EXUDRY. LARGE AMOUNT OF SEROSANGUINOUS DRAINAGE WITH ONE AREA ON R BUTTOCKS DRAINING MODERATE AMOUNT OF PURULENT DRAINAGE. PATIENT TEARFUL DURING WOUND CARE DUE PAIN, PREMEDICATED WITH TYLENOL AND OXYCODONE AND FENTANYL GIVEN AFTER TO CONTROL. 3+ PITTING EDEMA TO BLE. ALBUMIN GIVEN AND PATIENT CONTINUES ON 1L FLUID RESTRICTION. POWERGLIDE TO ISABEL WNL AND SL BETWEEN ABX. CALLS APPROPRIATELY AND ABLE TO MAKE NEEDS KNOWN.
--- NOTE | 2021-10-25 04:19 | NUR ---
A&Ox4. PLEASANT AND COOPERATIVE WITH CARE. WALSH PATENT AND DRAINING TO GRAVITY. OXY 10MG PO AN HOUR PRIOR TO GLUTEAL BANDAGE CHANGES. C/O KNEE PAIN; PROPPED ON PILLOW AND ICE PACK APPLIED. TELE: NORMAL SINUS @94; PEAKS WITH PAIN. NO BM THIS SHIFT. CONTINUES WITH FLUID RESTRICTION.
[2021-10-25 05:56] LABS: Hematocrit 31.8 % (33.0-51.0); Hemoglobin 9.8 g/dL (11.5-16.0)
[2021-10-25 06:09] LABS: Albumin, Blood 2.1 g/dL (3.4-5.0); Anion Gap 5 mmol/L (6-16); Blood Urea Nitrogen 24 mg/dL (8-24); Bun/Creatinine Ratio 38.6 (12.0-20.0); CO2, Blood 34 mmol/L (21-32); Calcium, Blood 8.5 mg/dL (8.5-10.1); Chloride, Blood 101 mmol/L (98-108); Creatinine, Blood 0.62 mg/dL (0.40-1.00); Glomerular Filtration Rate 96 (60-); Glucose, Blood 99 mg/dL (70-99); Magnesium, Blood 2.2 mg/dL (1.6-2.4); Phosphorus, Blood 2.9 mg/dL (2.5-4.9); Potassium, Blood 3.6 mmol/L (3.5-5.5); Sodium, Blood 140 mmol/L (136-145)
--- NOTE | 2021-10-25 18:09 | NUR ---
PATIENT HAS PAIN IN LOWER EXTREMITIES WITH THE EDEMA, AND RIGHT KNEE. PRESSURE AREA ON HEELS ARE CLOSED, SKIN DISCOLORED BROWN, BUT NOTHING IS OPEN. DRESSING WAS CHANGED. BUTTOCKS PRESSURE ULCERS DEEP, RED, SKIN AROUND PUPLE AND PAINFUL DURING DRESSING CHANGES. PATIENT TOOK ROXICODONE FOR THE PAIN D/T DRESSING CHANGE AND HAS BEEN SLEEPING SINCE. TELEMETRY WAS DISCONTINUED TODAY. ANTIBIOTICS ARE STILL BEING ISSUED. HGB, ALBUMIN, BUN ARE LOW. SNF IS BEING SOUGHT FOR COMPLETION OF ABX SCHEDULE.
--- NOTE | 2021-10-26 04:59 | NUR ---
A&Ox4. PLEASANT AND COOPERATIVE WITH CARE. PREMEDICATED WITH OXY 10MG PRIOR TO WOUND CARE CHANGE WITH SOME RELIEF. SKIN BEGINNING TO BRAEK DOWN FROM TAPE, SO TAGEDERM WAS APPLIED THIS EVENING WITH BRIEF TO KEEP ABD PADS IN PLACE. SLEPT T/O REST OF EVENING AFTER WOUND CARE. WALSH PATENT AND DRAINING TO HELP PROMOTE WOUND HEALING.
[2021-10-26 05:00] LABS: Hematocrit 33.8 % (33.0-51.0); Hemoglobin 10.4 g/dL (11.5-16.0)
[2021-10-26 05:26] LABS: Albumin, Blood 2.6 g/dL (3.4-5.0); Anion Gap 6 mmol/L (6-16); Blood Urea Nitrogen 22 mg/dL (8-24); Bun/Creatinine Ratio 33.1 (12.0-20.0); CO2, Blood 32 mmol/L (21-32); Calcium, Blood 8.8 mg/dL (8.5-10.1); Chloride, Blood 100 mmol/L (98-108); Creatinine, Blood 0.67 mg/dL (0.40-1.00); Glomerular Filtration Rate 95 (60-); Glucose, Blood 107 mg/dL (70-99); Magnesium, Blood 2.3 mg/dL (1.6-2.4); Phosphorus, Blood 3.6 mg/dL (2.5-4.9); Potassium, Blood 3.7 mmol/L (3.5-5.5); Sodium, Blood 138 mmol/L (136-145)
--- NOTE | 2021-10-26 15:05 | NUR ---
CONTACTED REGAURDING PT HYPOTENSION/ADDMINISTRATION OF IV LASIX-INSTRUCTED TO GIVE LASIC ORDERED.
--- NOTE | 2021-10-26 16:27 | NUR ---
SHIFT SUMMARY PT A&OX 4 AND IN PLEASENT MOOD T/O SHIFT. WOUNDS CLEANED, REDRESSED, AND PHOTOGRAPHED THIS SHIFT. PAIN MEDICATED PER EMAR. REPOSITIONED T/O SHIFT. TOLERATING PO INTAKE WELL. HYPOTENSION NOTED AND REPORTED. CALL LIGHT W/IN REACH. AWAITING PLACEMENT TO REHAB @ THIS TIME.
--- NOTE | 2021-10-27 03:41 | NUR ---
A&Ox4. VSS. WALSH PATENT AND DRAINING TO GRAVITY. POWERGLIDE ISABEL INFUSING ABx @ 0000. PATENT, FLUSHES AND DRAWS. PERINEAL WOUNDS CHANGED THIS EVENING; PREMEDICATED PRIOR TO CHANGES AND TOLERATED WELL. CONTINUES TO C/O RIGHT KNEE PAIN THAT STARTED 2-3 NIGHTS AGO. NO PALPABLE OR VISIBLE ANOMOLIES; NO HEAT OR EDEMA AROUND JOINT. PROPPED ON PILLOW, PRN OXYCODONE 10MG ADMINISTERED AND ICE PACK APPLIED. USING PERSONAL CPAP; SLEEPING WELL T/O THE NIGHT. NO ACUTE CONCERNS.
[2021-10-27 05:03] LABS: Hematocrit 30.7 % (33.0-51.0); Hemoglobin 9.5 g/dL (11.5-16.0)
[2021-10-27 05:42] LABS: Albumin, Blood 2.6 g/dL (3.4-5.0); Anion Gap 7 mmol/L (6-16); Blood Urea Nitrogen 23 mg/dL (8-24); Bun/Creatinine Ratio 34.1 (12.0-20.0); CO2, Blood 33 mmol/L (21-32); Calcium, Blood 8.7 mg/dL (8.5-10.1); Chloride, Blood 100 mmol/L (98-108); Creatinine, Blood 0.68 mg/dL (0.40-1.00); Glomerular Filtration Rate 94 (60-); Glucose, Blood 102 mg/dL (70-99); Magnesium, Blood 2.4 mg/dL (1.6-2.4); Phosphorus, Blood 3.2 mg/dL (2.5-4.9); Potassium, Blood 3.6 mmol/L (3.5-5.5); Sodium, Blood 140 mmol/L (136-145)
--- NOTE | 2021-10-27 18:18 | NUR ---
SHIFT SUMMARY PT A&OX4 AND IN PLEASENT MOOD T/O SHIFT. WOUNDS CLEANED AND REDRESSED THIS SHIFT. PAIN MEDICATED PER EMAR. CONSTIPATION MEDICATED PER EMAR, PROVIDED PT W/ PRUNE JUICE, C/O CRAMPING W/ NO BM. CALL LIGHT W/IN REACH. VSS. [facility] PLANS TO BE PRESENT FRIDAY AT 1030 FOR DRESSING CHANGE.
--- NOTE | 2021-10-28 05:16 | NUR ---
[employer] SUMMARY COMPLETED GLUTEAL WOUND CARE, USED CALCIUM ALGINATE DRESSING. PT C/O OF PAIN IN RT HIP. MEDICATED W/PRN PAIN MED. PT C/O OF CRAMPING W/NO BM. Q2 TURNS T/O NIGHT. 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 PT URINE OUTPUT IS LOW. PT TOLERATED WOUND CARE WELL. ABLE TO ADVOCATE FOR NEEDS AND USES CALL LIGHT APPROPRIATELY.
[2021-10-28 06:04] LABS: Hematocrit 29.2 % (33.0-51.0)
[2021-10-28 06:53] LABS: Albumin, Blood 2.7 g/dL (3.4-5.0); Anion Gap 7 mmol/L (6-16); Blood Urea Nitrogen 19 mg/dL (8-24); Bun/Creatinine Ratio 34.6 (12.0-20.0); CO2, Blood 33 mmol/L (21-32); Calcium, Blood 8.2 mg/dL (8.5-10.1); Chloride, Blood 98 mmol/L (98-108); Creatinine, Blood 0.55 mg/dL (0.40-1.00); Glomerular Filtration Rate 99 (60-); Glucose, Blood 106 mg/dL (70-99); Magnesium, Blood 2.5 mg/dL (1.6-2.4); Phosphorus, Blood 2.7 mg/dL (2.5-4.9); Potassium, Blood 3.6 mmol/L (3.5-5.5); Sodium, Blood 138 mmol/L (136-145)
--- NOTE | 2021-10-28 17:07 | NUR ---
SHIFT SUMMARY PT A&OX 4 AND IN PLEASENT MOOD T/O SHIFT. PT WOUNDS CHANGED AND CLEANED THIS AM BY DR. CAPPS. BEDBATH PROVIDED BY [facility]. PLAN TO CHANGE DRESSING TOMORROW @ [address] CAPPS AND GINO MIRELES. CALL LIGHT W/IN REACH. BEDREST. BOWEL PREP FOLLOWED THIS SHIFT. VSS.
--- NOTE | 2021-10-29 05:46 | NUR ---
METAL MINE INSPECTOR SUMMARY PT A/OX4. PT ON 24 HOUR URINE COLLECTION; WALSH BAG AND URINE KEPT ON ICE T/O THE EVENING. PT CONT T/COMPLAIN OF RT KNEE PAIN; INTENSIFIED W/MOVEMENT. PT URINE OUTPUT SCANT AND EDEMA WORSENING. PT STILL UNABLE TO HAVE A BM AND CONT TO C/O ABDOMINAL CRAMPING. CONTACT DR CASTELLANOS. RCVD ORDER FOR 1X IV LASIX, MINERAL OIL ENEMA, AND AM IMAGING F/RT KNEE. ADMIN ENEMA AND STILL NO BM. INCREASED URINE OUTPUT AFTER LASIX; 900MLS T/O SHIFT. BILATERAL GLUTEAL WOUND DRESSING WAS SATURATED W/BLOODY DRAINAGE. DID A COMPLETE DRESSING CHANGE; APPLIED CALCIUM ALGINATE. PT HAS BEEN TAKING ROXYCODONE PRN F/PAIN MANAGEMENT; PT WAS RELUCTANT TO TAKE DUE TO CONSTIPATION. ADMIN PRN IV FENTANYL; PT REPORTED HAVING VIVID DREAMS AFTER DOSE. PT ORIENTED TO CALL LIGHT; IN REACH.
[2021-10-29 05:51] LABS: Hematocrit 29.8 % (33.0-51.0); Hemoglobin 9.3 g/dL (11.5-16.0)
[2021-10-29 05:55] LABS: Albumin, Blood 2.8 g/dL (3.4-5.0); Anion Gap 6 mmol/L (6-16); Blood Urea Nitrogen 19 mg/dL (8-24); Bun/Creatinine Ratio 31.5 (12.0-20.0); CO2, Blood 33 mmol/L (21-32); Calcium, Blood 8.8 mg/dL (8.5-10.1); Chloride, Blood 97 mmol/L (98-108); Glomerular Filtration Rate 97 (60-); Glucose, Blood 106 mg/dL (70-99); Magnesium, Blood 2.4 mg/dL (1.6-2.4); Phosphorus, Blood 3.4 mg/dL (2.5-4.9); Potassium, Blood 3.6 mmol/L (3.5-5.5); Sodium, Blood 136 mmol/L (136-145)
[2021-10-29 13:24] LABS: Protein, Urine Quantitative 17.8 mg/dL (0.0-11.9)
--- NOTE | 2021-10-29 18:49 | NUR ---
SHIFT SUMMARY: PT A/O X 4, BEDREST AT THIS TIME. PT IS ABLE TO ASSIST WITH ROLE CHANGES AND BOOSTS BY GRABBING SIDE RAILS AND MOVING HERSELF WITH ASSISTANCE. PT HAD C/O STOMACH AND LOWER BACK PAIN ON HER R SIDE. PT GIVEN LACTULOSE ENEMA AND HAD TO BE DIGITALLY DISIMPACTED STOOL WAS SEEN AT RECTUM BUT SHE COULD NOT PUSH OUT. XXXLARGE AMOUNT OF FORMED STOOL WAS EVACUATED AND THEN PATIENT HAD LARGE AMOUNT OF SOFT UNFORMED BROWN STOOL. 4 MEDICATION PILLS WERE SEEN IN THE STOOL THAT WERE NOT DISSOLVED. UNABLE TO IDENTIFY BUT APPEARED TO BE THE SAME TYPE OF PILL. PT THEN HAD ANOTHER XXXLRG SOFT BM WHICH SHE WAS INCONTINENT OF AND DID NOT REALIZE SHE HAD. PT REPORTED HER BACK PAIN AND ABD PAIN WAS GONE AFTER HAVING BM'S. PT CONTINUES TO HAVE PAIN IN HER R KNEE ESPECIALLY WITH ANY MOVEMENT. PT WOUNDS APPEAR TO BE HEALING COMPARED TO PHOTOS TAKEN ON 10/26. WOUND CARE TO BUTTOCKS COMPLETED X 2 TODAY. WOUND CARE COMPLETED PER ORDERS. NO S/S OF INFECTION, GRANULATION TISSUE NOTED TO AREAS OF WOUND ON BOTTOM. LOYD AREA HAS HEALED, NEW SKIN GROWTH NOTED AND NO REDNESS OR MOISTURE. SKIN IS PINK. PT DID WELL WITH FLUID RESTRICTION TODAY. PT CONTINUES TO HAVE WALSH WHICH HAD SOME SLIGHT BLOOD TINGED URINE THIS AM. 24 HOUR URINE COLLECTION COMPLETED AND SENT TO LAB. [facility]BS[facility]ATION SCHEDULED TODAY AT 1030.
--- NOTE | 2021-10-30 04:57 | NUR ---
SHIFT SUMMARY A/OX4, BEDREST/LIFT. XXL SOFT BROWN BM THIS SHIFT. DRESSING CHANGE TO COCCYX. C/O PAIN WITH WOUND CARE, MEDICATED PER EMAR. VSS, NO ACUTE CHANGES AT THIS TIME. BED IN LOWEST POSITION WITH CALL LIGHT IN REACH. WILL CONTINUE TO MONITOR AND MONITOR REPORT TO ONCOMING RN.
[2021-10-30 05:43] LABS: Hematocrit 27.2 % (33.0-51.0); Hemoglobin 8.4 g/dL (11.5-16.0)
[2021-10-30 06:10] LABS: Magnesium, Blood 2.4 mg/dL (1.6-2.4)
[2021-10-30 06:11] LABS: Albumin, Blood 2.8 g/dL (3.4-5.0); Anion Gap 6 mmol/L (6-16); Blood Urea Nitrogen 17 mg/dL (8-24); Bun/Creatinine Ratio 26.1 (12.0-20.0); CO2, Blood 35 mmol/L (21-32); Calcium, Blood 8.6 mg/dL (8.5-10.1); Chloride, Blood 96 mmol/L (98-108); Creatinine, Blood 0.65 mg/dL (0.40-1.00); Glomerular Filtration Rate 95 (60-); Glucose, Blood 98 mg/dL (70-99); Phosphorus, Blood 4.1 mg/dL (2.5-4.9); Sodium, Blood 137 mmol/L (136-145)
--- NOTE | 2021-10-30 14:58 | NUR ---
LATE ENTRY/WOUND DRESSING CHANGE 1100: [facility] TO OBSERVE WOUND DRESSING CHANGE. PT REQUIRED FULL LOYD CARE, HAD LARGE LOOSE BM. CLEANED PT AND PROCEEDED WITH WOUND DRESSING CHANGE ON BUTTOCKS WOUND PER ORDER. WOUND BED CLEANED WITH WOUND BOBBIN CLEANER HAND AND RINSED WITH NS, CALCIUM ALGINATE APPLIED TO WOUND BED, COVERED WITH 2 ABD's AND MEDI PORE TAPE USED TO SECURE. TOOK 3 PERSONNEL MOD TO MAX ASSIST 15-20 MINS FOR DRESSING CHANGE & LOYD CARE.
--- NOTE | 2021-10-30 15:06 | NUR ---
LATE ENTRY 1230: PT UP TO RECLINER CHAIR AT BEDSIDE WITH PHYS THERAPY VIA LIFT IN THE ROOM.
--- NOTE | 2021-10-31 04:53 | NUR ---
SHIFT SUMMARY A/OX4, BEDREST/LIFT. REFUSING REPOSITIONS THIS SHIFT. WALSH PATENT AND DRAINING TO GRAVITY. PG TO ISABEL. VSS, NO ACUTE CHANGES AT THIS TIME. BED IN LOWEST POSITION WITH CALL LIGHT IN REACH. WILL CONTINUE TO MONITOR AND REPORT TO ONCOMING RN.
[2021-10-31 06:24] LABS: Hematocrit 27.3 % (33.0-51.0); Hemoglobin 8.4 g/dL (11.5-16.0)
[2021-10-31 06:38] LABS: Anion Gap 4 mmol/L (6-16); Blood Urea Nitrogen 20 mg/dL (8-24); Bun/Creatinine Ratio 32.5 (12.0-20.0); CO2, Blood 36 mmol/L (21-32); Calcium, Blood 8.6 mg/dL (8.5-10.1); Chloride, Blood 98 mmol/L (98-108); Creatinine, Blood 0.62 mg/dL (0.40-1.00); Glomerular Filtration Rate 96 (60-); Glucose, Blood 105 mg/dL (70-99); Magnesium, Blood 2.4 mg/dL (1.6-2.4); Phosphorus, Blood 2.8 mg/dL (2.5-4.9); Potassium, Blood 3.3 mmol/L (3.5-5.5); Sodium, Blood 138 mmol/L (136-145)
--- NOTE | 2021-10-31 18:41 | NUR ---
SHIFT SUMMARY PATIENT ALERT AND ORIENTED THROUGHOUT SHIFT. TOLERATING REGULAR DIET AND FLUID RESTRICTION OF 1000 ML PER 24 HR. CHAIRFAST WITH LIFT ASSIST FROM BED TO CHAIR. WOUND DRESSINGS CHANGED THIS SHIFT. ROUTINE ABX AND ALBUMEN IV. WALSH PATIENT. WORKED WITH PT/OT IN CHAIR. WAITING FOR SNF PLACEMENT FOR WOUND CARE. WILL REPORT TO FISHING ROD MECHANIC RN.
[2021-11-01] MEDS ORDERED: NEURONTIN300 MG PO (04:14)
[2021-11-01 05:28] LABS: Hematocrit 28.5 % (33.0-51.0); Hemoglobin 8.5 g/dL (11.5-16.0)
[2021-11-01 05:57] LABS: Albumin, Blood 3.1 g/dL (3.4-5.0); Anion Gap 6 mmol/L (6-16); Blood Urea Nitrogen 28 mg/dL (8-24); CO2, Blood 37 mmol/L (21-32); Calcium, Blood 8.9 mg/dL (8.5-10.1); Chloride, Blood 97 mmol/L (98-108); Creatinine, Blood 0.64 mg/dL (0.40-1.00); Glomerular Filtration Rate 96 (60-); Glucose, Blood 111 mg/dL (70-99); Magnesium, Blood 2.2 mg/dL (1.6-2.4); Phosphorus, Blood 3.1 mg/dL (2.5-4.9); Potassium, Blood 3.1 mmol/L (3.5-5.5); Sodium, Blood 140 mmol/L (136-145)
[2021-11-01 17:52] LABS: Influenza A, PCR NEGATIVE (NEGATIVE); Influenza B, PCR NEGATIVE (NEGATIVE); Resp Syncytial Virus, PCR NEGATIVE (NEGATIVE); SARS-Cov-2 (COVID-19) PCR, MMC NEGATIVE (NEGATIVE)
--- NOTE | 2021-11-01 18:08 | NUR ---
SHIFT SUMMARY PT AxOx4. PT IS BEDBOUND AND MORBIDLY OBESE WITH MULTIPLE PRESSURE ULCERS. WOUND CARE AND DRESSING CHANGES PERFORMED TO BUTTOCKS, GROIN AND BLE THIS SHIFT. PT IS EXPECTED TO DC TO [facility] FOR REHAB TOMORROW. PT REPORTS EXTREME PAIN WITH MOVEMENT TO R KNEE AND R HIP. PT MEDICATED PER EMAR. PT OFFERED REPOSITIONING AND TURNS Q2. PT DECLINES SOMETIMES D/T HAVING "TOO MUCH PAIN WHEN MOVING." PT WORKED WITH PHYSICAL THERAPY THIS SHIFT. FLUID RESTRICTION IN PLACE. WALSH CATHETER DRAINING PATENTLY. PT REPORTS LOOSE BMS THIS SHIFT. CURRENTLY RESTING IN BED WITH CALL LIGHT IN REACH. VITALS REVIEWED. PT DENIES ANY NEEDS AT THIS TIME.
[2021-11-02 05:41] LABS: Hematocrit 28.6 % (33.0-51.0); Hemoglobin 8.4 g/dL (11.5-16.0)
--- NOTE | 2021-11-02 05:44 | NUR ---
SHIFT SUMMARY AOX4. VSS. SPO2 >90% ON 2L O2 @REST, WORE CPAP WHILE ASLEEP. REPORTS PAIN IN R HIP, BUTTOCKS, MEDICATED 1 x 10MG ROXICODONE. DENIES N/V. CLEANSED & CHANGED BANDAGE TO BILAT BUTTOCKS. MOD AMOUNT SANGUINOUS DARK RED DRAINAGE FROM PRESSURE SORE. PLAN TO DC TO [facility]. CALL LIGHT IN REACH & PT ABLE TO MAKE NEEDS KNOWN.
[2021-11-02 05:52] LABS: Albumin, Blood 3.3 g/dL (3.4-5.0); Anion Gap 4 mmol/L (6-16); Blood Urea Nitrogen 41 mg/dL (8-24); Bun/Creatinine Ratio 65.8 (12.0-20.0); CO2, Blood 38 mmol/L (21-32); Calcium, Blood 9.2 mg/dL (8.5-10.1); Chloride, Blood 99 mmol/L (98-108); Creatinine, Blood 0.62 mg/dL (0.40-1.00); Glomerular Filtration Rate 96 (60-); Glucose, Blood 123 mg/dL (70-99); Phosphorus, Blood 3.1 mg/dL (2.5-4.9); Potassium, Blood 3.4 mmol/L (3.5-5.5); Sodium, Blood 141 mmol/L (136-145)
[2021-11-02] MEDS ORDERED: BISA10S PR (14:46)
[2021-11-02] MEDS ORDERED: BUME1 PO (14:46)
[2021-11-02] MEDS ORDERED: Cyclobenzaprine5 MG PO (14:47)
[2021-11-02] MEDS ORDERED: BUTALBITAL-ASA1 EACH PO (14:47)
[2021-11-02] MEDS ORDERED: DULCOLAX400 MG/51 PO (14:48)
[2021-11-02] MEDS ORDERED: Fleet Enema132 ML PR (14:49)
[2021-11-02] MEDS ORDERED: OXYB5 PO (14:49)
[2021-11-02] MEDS ORDERED: MICONAZOLE NIT130 GM TOP (14:49)
--- NOTE | 2021-11-02 14:49 | NUR ---
PREPARING FOR DISCHARGE/TRANSFER TO [facility] - THIS RN CALLED REPORT TO JOSY GODOY AT [facility]. THIS RN REMOVED PT'S POWERGLIDE IN ISABEL, CANULA INTACT WITHOUT BENDS OR BREAKS. RN PREFORMED WOUNDCARE ON PT'S BUTTOCKS PER PHYSICIAN ORDERS, AND APPLIED ANTIFUNGAL POWDER MIXED WITH BARRIER CREAM TO PANUS. PT IS A&O X4, RESTING COMFORTABLY, AWAITING TRANSPORTATION TO TRANSFER TO [facility]. WILL CONTINUE TO MONITOR.
[2021-11-02] MEDS ORDERED: ROXICODONE5 MG PO (14:50)
[2021-11-02] MEDS ORDERED: POTCHL20ER PO (14:50)
[2021-11-02] MEDS ORDERED: XARELTO2.5 M1 PO (14:51)
[2021-11-02] MEDS ORDERED: Aldactone25 MG PO (14:52)
[2021-11-02] MEDS ORDERED: SILVADENE20 G1 TOP (14:52)
[2021-11-02] MEDS ORDERED: VISBIOME 112.51 EACH PO (14:52)
--- NOTE | 2021-11-02 15:17 | NUR ---
DISCHARGE REPORT - PT WAS TRANSFERRED TO [facility] VIA [facility]. SCRIPT WAS GIVEN TO PARAMEDICS IN YELLOW ENVELOPE WITH DISCHARGE REPORT FOR [facility] STAFF. PT MOVED VIA MECHANICAL LIFT TO [facility] AND TRANSPORTED WITH ALL BELONGINGS.
== END 2021-11-02 14:58 | DRG 871 ==
LOC: ER 23:12 → ICUE 10-15 01:13 → PCU 10-15 01:13 → ICUE 10-15 05:50 → PCU 10-18 05:42 → MEDS 10-22 13:55
PROVIDERS: Family Medicine; Internal Medicine; Internal Medicine Nephrology; Student in an Organized Health Care Education/Training Program; Surgery; ADMIT Internal Medicine
PROC: 02HV33Z Insertion of Infusion Device into Superior Vena Cava, Percutaneous Approach (ICD-10-PCS; 2021-10-15)
PROC: 3E033XZ Introduction of Vasopressor into Peripheral Vein, Percutaneous Approach (ICD-10-PCS; 2021-10-15)
PROC: 0HBNXZZ Excision of Left Foot Skin, External Approach (ICD-10-PCS; 2021-10-16)
PROC: 3E03329 Introduction of Other Anti-infective into Peripheral Vein, Percutaneous Approach (ICD-10-PCS; principal; 2021-10-21)
DX: A41.51 Sepsis due to Escherichia coli [E. coli] (principal); G93.41 Metabolic encephalopathy; R65.21 Severe sepsis with septic shock; E87.0 Hyperosmolality and hypernatremia; N39.0 Urinary tract infection, site not specified; M62.82 Rhabdomyolysis; L97.111 Non-pressure chronic ulcer of right thigh limited to breakdown of skin; L97.121 Non-pressure chronic ulcer of left thigh limited to breakdown of skin; L03.315 Cellulitis of perineum; N17.9 Acute kidney failure, unspecified; E86.0 Dehydration; L89.109 Pressure ulcer of unspecified part of back, unspecified stage; B35.6 Tinea cruris; E87.6 Hypokalemia; L98.491 Non-pressure chronic ulcer of skin of other sites limited to breakdown of skin; E86.9 Volume depletion, unspecified; E88.09 Other disorders of plasma-protein metabolism, not elsewhere classified; E83.39 Other disorders of phosphorus metabolism; E87.70 Fluid overload, unspecified; L89.329 Pressure ulcer of left buttock, unspecified stage; N76.89 Other specified inflammation of vagina and vulva; L89.319 Pressure ulcer of right buttock, unspecified stage; N18.2 Chronic kidney disease, stage 2 (mild); D63.1 Anemia in chronic kidney disease; D69.6 Thrombocytopenia, unspecified; R80.9 Proteinuria, unspecified; Z20.822 Contact with and (suspected) exposure to COVID-19; K21.9 Gastro-esophageal reflux disease without esophagitis; L30.4 Erythema intertrigo; G43.909 Migraine, unspecified, not intractable, without status migrainosus; M26.609 Unspecified temporomandibular joint disorder, unspecified side; Z88.8 Allergy status to other drugs, medicaments and biological substances; Z88.5 Allergy status to narcotic agent; Z88.1 Allergy status to other antibiotic agents; Z79.899 Other long term (current) drug therapy; Z98.890 Other specified postprocedural states; Z79.2 Long term (current) use of antibiotics
CPT/HCPCS: 0241U; 36415; 36556; 51702; 71045; 72193; 73562-RT; 74177; 76770; 80048; 80053; 80069; 81001; 81050; 82550; 82553; 82947; 83605; 83735; 83930; 84100; 84132; 84156; 84295; 85014; 85018; 85025; 87040; 87077; 87086; 87186; 93005; 93010; 94660; 94760; 94762; 96360; 97110; 97112; 97162; 97166; 97530; 97535; 99285-25; A9270; C1751; J0696; J1650; J1815; J1940; J2405; J3010; J3480; J7030; J7050; J7060; J7070; P9047; Q9967

== ENCOUNTER 2021-11-08 13:05 | Inpatient (IN) | payer OTHER ==
[~2021-11-08] VITALS: Ht 149.9 cm; Wt 104.0 kg
[~2021-11-08 13:05] MED LIST changes: +Aldactone25 MG PO; +BISA10S PR; +BUME1 PO; +BUTALBITAL-ASA1 EACH PO; +Cyclobenzaprine5 MG PO; +DULCOLAX400 MG/51 PO; +Fleet Enema132 ML PR; +MICONAZOLE NIT130 GM TOP; +NEURONTIN300 MG PO; +OXYB5 PO; +POTCHL20ER PO; +ROXICODONE5 MG PO; +SILVADENE20 G1 TOP; +VISBIOME 112.51 EACH PO; +XARELTO2.5 M1 PO
--- NOTE | 2021-11-09 01:21 | NUR ---
ADMISSION: PATIENT IS RECIEVED FROM ER VIA STRETCHER. SLIDE TRANSFER WITH ASSIST OF 4. VSS, REPORTS PAIN GENERALIZED PAIN 8/10. PATIENT IS ANXIOUS, NEEDS A FAN. REPORTS NAUSEA BUT INSISTS ON EATING HER SANDWICH, EMESIS BAG IS GIVEN. PATIENT IS ORIENTED TO ROOM AND CALL ROTHMAN.
[2021-11-09 06:03] LABS: BASOPHILS PERCENT AUTO 1 % (0-2); EOSINOPHILS PERCENT AUTO 1 % (0-6); Hematocrit 30.9 % (33.0-51.0); Hemoglobin 9.5 g/dL (11.5-16.0); IMMATURE GRAN ABSOLUTE AUTO 0.45 K/mm3 (0.00-0.10); IMMATURE GRAN PERCENT AUTO 3 % (0-1); LYMPHOCYTES ABSOLUTE AUTO 1.72 K/mm3 (0.84-5.20); LYMPHOCYTES PERCENT AUTO 12 % (21-46); MONOCYTES PERCENT AUTO 7 % (4-13); Mean Corpuscular HGB 29.3 pg (26.0-34.0); Mean Corpuscular HGB Conc 30.7 g/dL (31.5-36.5); Mean Corpuscular Volume 95 fL (80-100); Mean Platelet Volume 11.2 fL (9.1-12.4); NEUTROPHILS ABSOLUTE AUTO 10.86 K/mm3 (1.96-9.15); NEUTROPHILS PERCENT AUTO 76 % (41-73); NRBC ABSOLUTE 0.02 K/mm3 (0.00-0.02); NRBC Auto 0.1 /100 WBC (0.0-0.2); Platelet Count 291 K/mm3 (150-400); RDW Coefficient Variation 17.1 % (11.7-14.2); RDW Standard Deviation 58.1 fL (35.1-46.3); Red Blood Cell Count 3.24 M/mm3 (3.80-5.20); White Blood Cell Count 14.23 K/mm3 (4.00-11.30)
[2021-11-09 06:08] LABS: Albumin, Blood 2.8 g/dL (3.4-5.0); Albumin/Globulin Ratio 0.7 (0.8-1.8); Bilirubin, Total 0.8 mg/dL (0.1-1.0); Bun/Creatinine Ratio 30.1 (12.0-20.0); Calcium, Blood 9.4 mg/dL (8.5-10.1); Creatinine, Blood 0.73 mg/dL (0.40-1.00); Globulin, Blood 4.1 g/dL (2.2-4.0); Potassium, Blood 3.2 mmol/L (3.5-5.5); Total Protein, Blood 6.9 g/dL (6.4-8.2)
--- NOTE | 2021-11-09 07:36 | NUR ---
SHIFT SUMMARY: PATIENT WAS INC. OF A LOOSE STOOL. PHOTO'S WERE TAKEN OF WOUNDS AFTER SKIN CARE. PATIENT WAS GIVEN OXYCODONE FOR PAIN WITH FAIR EFFECT, PATIENT TOLERATED DRSG CHANGE AND WOUND CARE POORLY. DR UNDERWOOD WAS NOTIFIED AND ORDER FOR IV FENTANYL PREMED FOR DRSG CHANGE WAS OBTAINED. PATIENT WAS ABLE TO SLEEP AFTER CARES WERE GIVEN.
[2021-11-09 09:46] LABS: Source, Urine Foley catheter
[2021-11-09 10:05] LABS: Appearance, Urine Hazy (Clear); Bilirubin, Urine Neg (Neg); Blood, Urine 3+ (Neg); Color, Urine Yellow (P-Yellow); Glucose Qualitative, Urine Neg (Neg); Ketones, Urine 1+ (Neg); Leukocyte Esterase, Urine 2+ (Neg); Nitrite, Urine Neg (Neg); Protein, Urine 2+ (Neg); Urobilinogen, Urine NORM (Normal)
[2021-11-09 11:17] LABS: Bacteria Many /hpf; Squamous Epithelial Cells Few /hpf (Few); Transitional Epithelial Cells Rare /hpf (0-Rare); Yeast/Fungi Urine Mod /hpf
[2021-11-09 11:18] LABS: Uric Acid Crystals Mod /hpf
--- NOTE | 2021-11-09 16:51 | NUR ---
SHIFT SUMMARY PATIENT ALERT AND ORIENTED. FOLLOWS COMMANDS. PT WITH MULTIPLE WOUNDS TO HEELS AND BUTTOCKS. DRESSINGS CHANGED MULTIPLE TIMES DURIN SHIFT. PTS INDWELLING CATHETER BECAME CLOGGED AND WASNT DRAINING, UNABLE TO FLUSH TO FREE FLOW. WALSH REMOVED AND REPLACED WITH 16FR INDWELLING CATHETER. CLEAR YELLOW URINE BEGAN TO FLOW FOLLOWING INSERTION. SCHEDULE PAIN MEDICATIONS GIVEN. PENDING PT PENDING BED FOR TRANSPORT. CALL LIGHT WITHIN REACH.
[2021-11-10 05:56] LABS: BASOPHILS ABSOLUTE AUTO 0.07 K/mm3 (0.00-0.23); BASOPHILS PERCENT AUTO 1 % (0-2); EOSINOPHILS ABSOLUTE AUTO 0.11 K/mm3 (0.00-0.68); EOSINOPHILS PERCENT AUTO 1 % (0-6); Hematocrit 31.8 % (33.0-51.0); Hemoglobin 9.5 g/dL (11.5-16.0); IMMATURE GRAN ABSOLUTE AUTO 0.44 K/mm3 (0.00-0.10); IMMATURE GRAN PERCENT AUTO 4 % (0-1); LYMPHOCYTES ABSOLUTE AUTO 1.57 K/mm3 (0.84-5.20); LYMPHOCYTES PERCENT AUTO 14 % (21-46); MONOCYTES ABSOLUTE AUTO 0.79 K/mm3 (0.16-1.47); MONOCYTES PERCENT AUTO 7 % (4-13); Mean Corpuscular HGB 29.3 pg (26.0-34.0); Mean Corpuscular HGB Conc 29.9 g/dL (31.5-36.5); Mean Corpuscular Volume 98 fL (80-100); Mean Platelet Volume 11.1 fL (9.1-12.4); NEUTROPHILS ABSOLUTE AUTO 7.89 K/mm3 (1.96-9.15); NEUTROPHILS PERCENT AUTO 73 % (41-73); Platelet Count 272 K/mm3 (150-400); RDW Coefficient Variation 17.2 % (11.7-14.2); RDW Standard Deviation 59.7 fL (35.1-46.3); Red Blood Cell Count 3.24 M/mm3 (3.80-5.20); White Blood Cell Count 10.87 K/mm3 (4.00-11.30)
[2021-11-10 06:24] LABS: Albumin, Blood 2.8 g/dL (3.4-5.0); Anion Gap 6 mmol/L (6-16); Blood Urea Nitrogen 20 mg/dL (8-24); Bun/Creatinine Ratio 26.7 (12.0-20.0); CO2, Blood 34 mmol/L (21-32); Calcium, Blood 9.4 mg/dL (8.5-10.1); Chloride, Blood 98 mmol/L (98-108); Creatinine, Blood 0.75 mg/dL (0.40-1.00); Glomerular Filtration Rate 86 (60-); Glucose, Blood 98 mg/dL (70-99); Magnesium, Blood 2.4 mg/dL (1.6-2.4); Phosphorus, Blood 4.5 mg/dL (2.5-4.9); Potassium, Blood 3.2 mmol/L (3.5-5.5); Sodium, Blood 138 mmol/L (136-145)
--- NOTE | 2021-11-10 17:40 | NUR ---
SHIFT SUMMARY NO ACUTE CHANGES DURING SHIFT. PATIENT ALERT AND ORIENTED, FOLLOWS COMMANDS. PT HAD BED BATH AND ALL LINENS CHANGED, WELL DRESSING. PT C/O HEADACHE, FIORICET STARTED. WILL CONTINUE TO MONITOR. PT PENDING PLACEMENT. CALL LIGHT WITHIN REACH.
[2021-11-11 04:53] LABS: BASOPHILS ABSOLUTE AUTO 0.07 K/mm3 (0.00-0.23); BASOPHILS PERCENT AUTO 1 % (0-2); EOSINOPHILS ABSOLUTE AUTO 0.07 K/mm3 (0.00-0.68); EOSINOPHILS PERCENT AUTO 1 % (0-6); Hematocrit 30.9 % (33.0-51.0); Hemoglobin 9.2 g/dL (11.5-16.0); IMMATURE GRAN ABSOLUTE AUTO 0.38 K/mm3 (0.00-0.10); IMMATURE GRAN PERCENT AUTO 4 % (0-1); LYMPHOCYTES PERCENT AUTO 19 % (21-46); MONOCYTES ABSOLUTE AUTO 0.75 K/mm3 (0.16-1.47); MONOCYTES PERCENT AUTO 8 % (4-13); Mean Corpuscular HGB 29.4 pg (26.0-34.0); Mean Corpuscular HGB Conc 29.8 g/dL (31.5-36.5); Mean Corpuscular Volume 99 fL (80-100); Mean Platelet Volume 11.1 fL (9.1-12.4); NEUTROPHILS ABSOLUTE AUTO 6.38 K/mm3 (1.96-9.15); NEUTROPHILS PERCENT AUTO 68 % (41-73); Platelet Count 237 K/mm3 (150-400); RDW Coefficient Variation 17.2 % (11.7-14.2); RDW Standard Deviation 59.2 fL (35.1-46.3); Red Blood Cell Count 3.13 M/mm3 (3.80-5.20); White Blood Cell Count 9.45 K/mm3 (4.00-11.30)
[2021-11-11 05:09] LABS: Albumin, Blood 2.6 g/dL (3.4-5.0); Anion Gap 7 mmol/L (6-16); Blood Urea Nitrogen 19 mg/dL (8-24); Bun/Creatinine Ratio 26.1 (12.0-20.0); CO2, Blood 32 mmol/L (21-32); Calcium, Blood 8.6 mg/dL (8.5-10.1); Chloride, Blood 99 mmol/L (98-108); Creatinine, Blood 0.73 mg/dL (0.40-1.00); Glomerular Filtration Rate 89 (60-); Glucose, Blood 101 mg/dL (70-99); Magnesium, Blood 2.2 mg/dL (1.6-2.4); Phosphorus, Blood 3.5 mg/dL (2.5-4.9); Potassium, Blood 3.3 mmol/L (3.5-5.5); Sodium, Blood 138 mmol/L (136-145)
--- NOTE | 2021-11-11 06:16 | NUR ---
NOC SHIFT SUMMARY PT ADMITTED FOR BILATERAL LOWER EXTREMITY WEAKNESS, WITH IMAGING PROVIDING A DIAGNOSIS OF SPINAL STENOSIS AT L4-L5. SACRAL AND BUTTOCK WOUNDS PRESENT ON ADMISSION; MULTIPLE DRESSING CHANGES TO KEEP C/D/I. WALSH CATHETER IN SITU TO FACILITATE HEALING. PLAN TO RETURN TO [facility] PER PATIENT. NO ISSUES OVERNIGHT.
--- NOTE | 2021-11-11 12:29 | NUR ---
[address] CAPPS REGARDING PATIENT VITAL SIGNS PRIOR TO GIVING AM MEDS. PER DR CAPPS AM MEDS TO BE GIVEN WITH ADJUSTMENT TO BUMEX DOSE
--- NOTE | 2021-11-11 18:29 | NUR ---
PT ASSISTED WITH REPOSITIONING AND MOVING SELF IN BED. TEARFUL AT TIMES AND STATES "ITS MY OWN FAULT, I DID THIS TO MYSELF" REASSUSRANCE GIVEN TO PATIENT. GÓMEZ PO FOOD AND FLUIDS. BILAT HEEL PROTECTORS IN PLACE AND HEELS FLOATEE. MEPILEX DRESSINGS IN PLACE TO COCCYX AND BUTTOCK WOUNDS
[2021-11-11] MEDS ORDERED: NABU750 PO (22:04)
--- NOTE | 2021-11-11 23:01 | NUR ---
2028 PT LYING IN BED, REPORTS R SIDE PAIN, GOT OXYCODONE, WILL EVAL FOR EFFECT. SBD ON BOTTOM/SACRAL AREA AND WOUND TO HEELS. WALSH CLEAR YELLOW URINE. NO OTHER APPARENT SIGNS OF DISTRESS. CALL LIGHT IS IN REACH.
--- NOTE | 2021-11-12 00:02 | NUR ---
11/11/21 2200 PT LYING IN BED, EYES CLOSED, APPEARS TO BE RESTING. WAKES EASILY TO VERBAL STIMULI. NO APPARENT SIGNS OF DISTRESS. CALL LIGHT IS IN REACH.
--- NOTE | 2021-11-12 00:03 | NUR ---
PT LYING IN BED, EYES CLOSED, APPEARS TO BE RESTING. BREATHING IS EVEN, UNLABORED. ON APPARENT SIGNS OF DISTRESS. CALL LIGHT IS IN REACH.
--- NOTE | 2021-11-12 03:46 | NUR ---
0200 PT LYING IN BED, EYES CLOSED, APPEARS TO BE RESTING. BREATHING IS EVEN, UNLABORED. NO APPARENT SIGNS OF DISTRESS. CALL LIGHT IS IN REACH.
--- NOTE | 2021-11-12 03:46 | NUR ---
PT LYING IN BED, EYES CLOSED, APPEARS TO BE RESTING. WAKES EASILY TO VERBAL STIMULI. NO APPARENT SIGNS OF DISTRESS. CALL LIGHT IS IN REACH.
--- NOTE | 2021-11-12 04:59 | NUR ---
PT IS AAO X 4, ON RA. REPORTS R SIDE PAIN, GOT OXYCODONE. WOUNDS TO BOTTOM AND HEELS. MEPLEX ON HEELS. WALSH, CLEAR YELLOW URINE.
[2021-11-12 05:13] LABS: Albumin, Blood 2.5 g/dL (3.4-5.0); Anion Gap 9 mmol/L (6-16); Blood Urea Nitrogen 19 mg/dL (8-24); Bun/Creatinine Ratio 29.7 (12.0-20.0); CO2, Blood 27 mmol/L (21-32); Calcium, Blood 8.5 mg/dL (8.5-10.1); Chloride, Blood 100 mmol/L (98-108); Creatinine, Blood 0.64 mg/dL (0.40-1.00); Glomerular Filtration Rate 96 (60-); Glucose, Blood 105 mg/dL (70-99); Phosphorus, Blood 4.3 mg/dL (2.5-4.9); Potassium, Blood 3.8 mmol/L (3.5-5.5); Sodium, Blood 136 mmol/L (136-145)
--- NOTE | 2021-11-12 05:30 | NUR ---
PT LYING IN BED, EYES CLOSED, APPEARS TO BE RESTING. BREATHING IS EVEN, UNLABORED. NO APPARENT SIGNS OF DISTRESS. CALL LIGHT IS IN REACH. NO OTHER CHANGES THIS SHIFT.
[2021-11-12 05:44] LABS: BASOPHILS ABSOLUTE AUTO 0.07 K/mm3 (0.00-0.23); BASOPHILS PERCENT AUTO 1 % (0-2); EOSINOPHILS PERCENT AUTO 1 % (0-6); Hematocrit 22.1 % (33.0-51.0); IMMATURE GRAN ABSOLUTE AUTO 0.38 K/mm3 (0.00-0.10); IMMATURE GRAN PERCENT AUTO 3 % (0-1); LYMPHOCYTES ABSOLUTE AUTO 1.88 K/mm3 (0.84-5.20); LYMPHOCYTES PERCENT AUTO 17 % (21-46); MONOCYTES ABSOLUTE AUTO 0.92 K/mm3 (0.16-1.47); MONOCYTES PERCENT AUTO 8 % (4-13); Mean Corpuscular HGB 29.7 pg (26.0-34.0); Mean Corpuscular HGB Conc 31.7 g/dL (31.5-36.5); Mean Corpuscular Volume 94 fL (80-100); Mean Platelet Volume 11.6 fL (9.1-12.4); NEUTROPHILS ABSOLUTE AUTO 7.73 K/mm3 (1.96-9.15); NEUTROPHILS PERCENT AUTO 70 % (41-73); Platelet Count 227 K/mm3 (150-400); RDW Coefficient Variation 17.2 % (11.7-14.2); RDW Standard Deviation 56.3 fL (35.1-46.3); Red Blood Cell Count 2.36 M/mm3 (3.80-5.20); White Blood Cell Count 11.08 K/mm3 (4.00-11.30)
[2021-11-12 14:16] LABS: SARS-Cov-2 (COVID-19) PCR, MMC NEGATIVE (NEGATIVE)
--- NOTE | 2021-11-12 15:25 | NUR ---
DISCHARGE/WOUND CARE PT DISCHARGED BACK TO [facility] AFTER DR. CAPPS COMPLETED A BEDSIDE DEBRIDEMENT OF THE L HEEL. SILVADINE WAS APPLIED WITH A NON-ADHERANT PAD OVERTOP AND A MEPILEX TO KEEP IT IN PLACE AFTERWARDS. MEPLIXES REPLACED ON THE SACRUM AFTER THEY WERE SOILED. DR. CAPPS ORDERED TO PLACE CALCIUM ALGINATE IN THE TUNNELED PORTION OF THE R BUTTOCKS AND FOR MEDIHONEY TO BE PLACED OVER THE REST OF THE WOUND BED. IV REMOVED & INTACT. OXYCODONE SCRIPT SENT WITH PT. WOUND CARE ORDERD AND REPORT RELAYED TO [facility] N[facility]SE. PT TRANSPORTED VIA GURNEY. NO OTHER ACUTE CHANGES IN ASSESSMENT AT THIS TIME.
[2021-11-12] MEDS ORDERED: HONEY PASTE TOP (15:33)
[2021-11-12] MEDS ORDERED: ZINC220 PO (15:36)
[2021-11-12] MEDS ORDERED: CIPR500 PO (15:37)
[2021-11-12] MEDS ORDERED: MULVITA PO (15:37)
[2021-11-12] MEDS ORDERED: LACT PO (15:37)
[2021-11-12] MEDS ORDERED: Acerola C500 MG PO (15:38)
== END 2021-11-12 15:12 | DRG 552 ==
LOC: ER 13:05 → MEDS 13:06 → ER 13:06 → MEDS 13:06
PROVIDERS: Family Medicine; ADMIT Internal Medicine
DX: M48.061 Spinal stenosis, lumbar region without neurogenic claudication (principal); Z68.43 Body mass index [BMI] 50.0-59.9, adult; N39.0 Urinary tract infection, site not specified; Z20.822 Contact with and (suspected) exposure to COVID-19; B95.2 Enterococcus as the cause of diseases classified elsewhere; B37.9 Candidiasis, unspecified; K21.9 Gastro-esophageal reflux disease without esophagitis; G43.709 Chronic migraine without aura, not intractable, without status migrainosus; M26.609 Unspecified temporomandibular joint disorder, unspecified side; G83.14 Monoplegia of lower limb affecting left nondominant side; G83.11 Monoplegia of lower limb affecting right dominant side; R15.9 Full incontinence of feces; R33.9 Retention of urine, unspecified; L89.319 Pressure ulcer of right buttock, unspecified stage; L89.159 Pressure ulcer of sacral region, unspecified stage; E66.9 Obesity, unspecified; I12.9 Hypertensive chronic kidney disease with stage 1 through stage 4 chronic kidney disease, or unspecified chronic kidney disease; N18.2 Chronic kidney disease, stage 2 (mild); E87.6 Hypokalemia; L89.109 Pressure ulcer of unspecified part of back, unspecified stage; Z88.8 Allergy status to other drugs, medicaments and biological substances; Z88.5 Allergy status to narcotic agent; Z98.890 Other specified postprocedural states; Z88.1 Allergy status to other antibiotic agents; Z79.899 Other long term (current) drug therapy; Z79.891 Long term (current) use of opiate analgesic; Z79.01 Long term (current) use of anticoagulants
CPT/HCPCS: 36415; 72148; 80053; 80069; 81001; 83735; 85025; 87077; 87086; 87186; 97110; 97161; 97166; 97530; 97535; 99285-25; A9270; J0696; J2405; J3010; J7030; U0004

== ENCOUNTER 2021-12-07 02:33 | Day surgery (SDC) | payer OTHER ==
[~2021-12-07 02:33] MED LIST changes: +Acerola C500 MG PO; +CIPR500 PO; +HONEY PASTE TOP; +LACT PO; +MULVITA PO; +ZINC220 PO
== END 2021-12-07 23:59 | disposition home or self-care (01) ==
LOC: WOUND 02:33
DX: L89.324 Pressure ulcer of left buttock, stage 4 (principal); L89.312 Pressure ulcer of right buttock, stage 2; L89.152 Pressure ulcer of sacral region, stage 2; L98.422 Non-pressure chronic ulcer of back with fat layer exposed; Z88.5 Allergy status to narcotic agent; Z88.1 Allergy status to other antibiotic agents
CPT/HCPCS: G0463

== ENCOUNTER 2021-12-21 00:58 | Day surgery (SDC) | payer OTHER | END 2021-12-21 23:28 | disposition home or self-care (01) | LOC: WOUND 00:58 | DX: S21.209A Unspecified open wound of unspecified back wall of thorax without penetration into thoracic cavity, initial encounter (principal); T81.31XD Disruption of external operation (surgical) wound, not elsewhere classified, subsequent encounter; L98.422 Non-pressure chronic ulcer of back with fat layer exposed; L89.324 Pressure ulcer of left buttock, stage 4; L89.313 Pressure ulcer of right buttock, stage 3; L89.153 Pressure ulcer of sacral region, stage 3; G83.4 Cauda equina syndrome | CPT/HCPCS: A9270; G0463 ==

== ENCOUNTER 2022-01-14 01:24 | Day surgery (SDC) | payer OTHER | END 2022-01-14 23:36 | disposition home or self-care (01) | LOC: WOUND 01:24 | DX: L89.324 Pressure ulcer of left buttock, stage 4 (principal); L89.313 Pressure ulcer of right buttock, stage 3; L89.153 Pressure ulcer of sacral region, stage 3; T81.89XA Other complications of procedures, not elsewhere classified, initial encounter; G83.4 Cauda equina syndrome | CPT/HCPCS: A9270 ==

== ENCOUNTER 2022-01-28 01:16 | Day surgery (SDC) | payer OTHER | END 2022-01-28 23:36 | disposition home or self-care (01) | DX: L89.324 Pressure ulcer of left buttock, stage 4 (principal); L89.313 Pressure ulcer of right buttock, stage 3; L89.153 Pressure ulcer of sacral region, stage 3; T81.89XA Other complications of procedures, not elsewhere classified, initial encounter; G83.4 Cauda equina syndrome ==

== ENCOUNTER 2022-02-15 01:15 | Day surgery (SDC) | payer OTHER | END 2022-02-15 23:14 | disposition home or self-care (01) | LOC: WOUND 01:15 | DX: L89.324 Pressure ulcer of left buttock, stage 4 (principal); L89.313 Pressure ulcer of right buttock, stage 3; L98.422 Non-pressure chronic ulcer of back with fat layer exposed; G83.4 Cauda equina syndrome | CPT/HCPCS: A9270; G0463 ==

== ENCOUNTER 2022-03-15 03:12 | Day surgery (SDC) | payer OTHER | END 2022-03-15 23:08 | disposition home or self-care (01) | LOC: WOUND 03:12 | DX: T81.31XD Disruption of external operation (surgical) wound, not elsewhere classified, subsequent encounter (principal); L98.422 Non-pressure chronic ulcer of back with fat layer exposed; L89.324 Pressure ulcer of left buttock, stage 4; L89.313 Pressure ulcer of right buttock, stage 3; L89.153 Pressure ulcer of sacral region, stage 3; G83.4 Cauda equina syndrome | CPT/HCPCS: G0463 ==

== ENCOUNTER 2022-03-29 02:24 | Day surgery (SDC) | payer OTHER | END 2022-03-29 22:49 | disposition home or self-care (01) | LOC: WOUND 02:24 | DX: L89.324 Pressure ulcer of left buttock, stage 4 (principal); L89.313 Pressure ulcer of right buttock, stage 3; T81.31XD Disruption of external operation (surgical) wound, not elsewhere classified, subsequent encounter; L98.422 Non-pressure chronic ulcer of back with fat layer exposed; L89.153 Pressure ulcer of sacral region, stage 3; G83.4 Cauda equina syndrome; X58.XXXD Exposure to other specified factors, subsequent encounter | CPT/HCPCS: A9270; G0463 ==

== ENCOUNTER → 2022-09-06 | Outpatient (CLI) | payer OTHER ==
[2022-09-06 17:37] LABS: Albumin, Blood 3.3 g/dL (3.4-5.0); Anion Gap 5 mmol/L (6-16); Blood Urea Nitrogen 21 mg/dL (8-24); Bun/Creatinine Ratio 30.4 (12.0-20.0); CO2, Blood 29 mmol/L (21-32); Calcium, Blood 9.5 mg/dL (8.5-10.1); Chloride, Blood 105 mmol/L (98-108); Creatinine, Blood 0.69 mg/dL (0.40-1.00); Glomerular Filtration Rate 93 (60-); Glucose, Blood 105 mg/dL (70-99); Phosphorus, Blood 3.3 mg/dL (2.5-4.9); Potassium, Blood 3.8 mmol/L (3.5-5.5); Sodium, Blood 139 mmol/L (136-145)
== END | disposition home or self-care (01) ==
LOC: LAB SHORT 12:25 → LAB 12:25
PROVIDERS: Internal Medicine Nephrology
DX: N18.2 Chronic kidney disease, stage 2 (mild) (principal); D63.1 Anemia in chronic kidney disease
CPT/HCPCS: 80069; 85018

== ENCOUNTER → 2023-04-11 | Outpatient (CLI) | payer OTHER ==
[2023-04-11 18:32] LABS: Appearance, Urine Clear (Clear); Bilirubin, Urine Neg (Neg); Blood, Urine 1+ (Neg); Color, Urine Yellow (P-Yellow); Glucose Qualitative, Urine Neg (Neg); Ketones, Urine Neg (Neg); Leukocyte Esterase, Urine 2+ (Neg); Nitrite, Urine Neg (Neg); Protein, Urine 1+ (Neg); Urobilinogen, Urine NORM (Normal)
[2023-04-11 19:05] LABS: Bacteria Few /hpf; Squamous Epithelial Cells Few /hpf (Few)
== END ==
LOC: LAB SHORT 16:59 → LAB 16:59
PROVIDERS: Physician Assistant
DX: N39.0 Urinary tract infection, site not specified (principal)
CPT/HCPCS: 81001; 87077; 87086; 87186

== ENCOUNTER → 2023-06-23 | Outpatient (CLI) | payer OTHER ==
[2023-06-23 12:37] LABS: Source, Urine Straight Cath
[2023-06-23 16:16] LABS: Appearance, Urine Turbid (Clear); Bilirubin, Urine Neg (Neg); Blood, Urine 3+ (Neg); Color, Urine Yellow (P-Yellow); Glucose Qualitative, Urine Neg (Neg); Ketones, Urine 1+ (Neg); Leukocyte Esterase, Urine 3+ (Neg); Nitrite, Urine Pos (Neg); Protein, Urine 2+ (Neg); Urobilinogen, Urine NORM (Normal)
[2023-06-23 16:40] LABS: White Blood Cells, Urine TNTC /hpf (0-5)
[2023-06-23 16:44] LABS: Bacteria Many /hpf; Squamous Epithelial Cells Few /hpf (Few); Transitional Epithelial Cells Few /hpf (0-Rare)
== END | disposition home or self-care (01) ==
LOC: LAB 12:35 → LAB SHORT 12:35 → EDSTATUS 16:52
PROVIDERS: Physician Assistant
DX: Z46.6 Encounter for fitting and adjustment of urinary device (principal); I13.10 Hypertensive heart and chronic kidney disease without heart failure, with stage 1 through stage 4 chronic kidney disease, or unspecified chronic kidney disease; Z87.440 Personal history of urinary (tract) infections
CPT/HCPCS: 81001; 87086

== ENCOUNTER → 2023-07-02 | Outpatient (CLI) | payer OTHER ==
[2023-07-02 14:29] LABS: BASOPHILS ABSOLUTE AUTO 0.07 K/mm3 (0.00-0.23); BASOPHILS PERCENT AUTO 1 % (0-2); EOSINOPHILS ABSOLUTE AUTO 0.19 K/mm3 (0.00-0.68); EOSINOPHILS PERCENT AUTO 2 % (0-6); Hematocrit 39.4 % (33.0-51.0); Hemoglobin 11.5 g/dL (11.5-16.0); IMMATURE GRAN ABSOLUTE AUTO 0.05 K/mm3 (0.00-0.10); IMMATURE GRAN PERCENT AUTO 1 % (0-1); LYMPHOCYTES PERCENT AUTO 18 % (21-46); MONOCYTES PERCENT AUTO 6 % (4-13); Mean Corpuscular HGB 25.3 pg (26.0-34.0); Mean Corpuscular HGB Conc 29.2 g/dL (31.5-36.5); Mean Corpuscular Volume 87 fL (80-100); Mean Platelet Volume 12.4 fL (9.1-12.4); NEUTROPHILS ABSOLUTE AUTO 6.74 K/mm3 (1.96-9.15); NEUTROPHILS PERCENT AUTO 74 % (41-73); Platelet Count 183 K/mm3 (150-400); RDW Coefficient Variation 16.8 % (11.7-14.2); RDW Standard Deviation 53.5 fL (35.1-46.3); Red Blood Cell Count 4.54 M/mm3 (3.80-5.20); White Blood Cell Count 9.15 K/mm3 (4.00-11.30)
[2023-07-02 15:02] LABS: Anion Gap 9 mmol/L (3-11); Blood Urea Nitrogen 13 mg/dL (8-24); Bun/Creatinine Ratio 22.1 (12.0-20.0); CHOL/HDL RATIO 5.1; CO2, Blood 32 mmol/L (21-32); Calcium, Blood 9.6 mg/dL (8.5-10.1); Chloride, Blood 102 mmol/L (98-108); Cholesterol 163 mg/dL (50-200); Creatinine, Blood 0.59 mg/dL (0.40-1.00); Glomerular Filtration Rate 96 (60-); Glucose, Blood 101 mg/dL (70-99); HDL Cholesterol 32 mg/dL (>39); LDL/HDL RATIO 3.3; Low Density Lipoprotein Chol 104 mg/dL (0-110); Phosphorus, Blood 3.2 mg/dL (2.5-4.9); Sodium, Blood 139 mmol/L (136-145); Triglycerides 133 mg/dL (30-160); Very Low Density Lipoprot Chol 26 mg/dL (6-32)
[2023-07-02 15:31] LABS: Microalb/Creat Ratio UR, Rand 158.647 mg/g (0.000-30.000)
== END ==
LOC: LAB 12:25 → LAB SHORT 12:25
PROVIDERS: Physician Assistant
DX: K76.0 Fatty (change of) liver, not elsewhere classified (principal); K74.60 Unspecified cirrhosis of liver; I10 Essential (primary) hypertension; E78.2 Mixed hyperlipidemia; R73.9 Hyperglycemia, unspecified
CPT/HCPCS: 80061; 80069; 82043; 82570; 83036; 85025

== ENCOUNTER → 2023-08-21 | Outpatient (CLI) | payer OTHER ==
[2023-08-21 14:34] LABS: Source, Urine Voided
[2023-08-21 17:19] LABS: Appearance, Urine Clear (Clear); Bilirubin, Urine Neg (Neg); Blood, Urine 4+ (Neg); Color, Urine Yellow (P-Yellow); Glucose Qualitative, Urine Neg (Neg); Ketones, Urine Neg (Neg); Leukocyte Esterase, Urine 2+ (Neg); Nitrite, Urine Neg (Neg); Protein, Urine 1+ (Neg); Specific Gravity, Urine 1.015 (1.003-1.022); Urobilinogen, Urine NORM (Normal)
[2023-08-21 17:34] LABS: Bacteria Many /hpf; Red Blood Cells, Urine 0-2 /hpf (0-2); Squamous Epithelial Cells Few /hpf (Few)
[2023-08-21 17:35] LABS: Renal Epithelial Rare /hpf (0-Rare)
== END ==
LOC: LAB 11:50 → LAB SHORT 11:50
PROVIDERS: Physician Assistant
DX: R39.9 Unspecified symptoms and signs involving the genitourinary system (principal)
CPT/HCPCS: 81001; 87077; 87086; 87147; 87186

== ENCOUNTER → 2023-09-15 | Outpatient (CLI) | payer OTHER ==
[2023-09-15 14:46] LABS: Source, Urine Voided
[2023-09-15 17:26] LABS: Appearance, Urine Hazy (Clear); Bilirubin, Urine Neg (Neg); Blood, Urine 4+ (Neg); Color, Urine Yellow (P-Yellow); Glucose Qualitative, Urine Neg (Neg); Ketones, Urine Neg (Neg); Leukocyte Esterase, Urine 3+ (Neg); Nitrite, Urine Neg (Neg); Protein, Urine 2+ (Neg); Urobilinogen, Urine NORM (Normal)
[2023-09-15 17:41] LABS: Bacteria Mod /hpf; Hyaline Casts 0-2 /lpf (0-2); Squamous Epithelial Cells Few /hpf (Few); White Blood Cells, Urine 25-50 /hpf (0-5)
[2023-09-15 17:42] LABS: Renal Epithelial Rare /hpf (0-Rare)
== END ==
LOC: LAB SHORT 14:43 → LAB 14:43
PROVIDERS: Physician Assistant
DX: N39.0 Urinary tract infection, site not specified (principal)
CPT/HCPCS: 81001; 87077; 87086; 87186

== ENCOUNTER 2024-02-13 13:09 | Inpatient (IN) | payer OTHER ==
[~2024-02-13] VITALS: Ht 152.4 cm; Wt 108.9 kg
[2024-02-13] MEDS ORDERED: CefTRIAXone Sodium 1,000 MG in NS 100 ML IV ONE (13:30)
[2024-02-13 13:40] LABS: BASOPHILS ABSOLUTE AUTO 0.15 K/mm3 (0.00-0.23); BASOPHILS PERCENT AUTO 1 % (0-2); EOSINOPHILS ABSOLUTE AUTO 0.01 K/mm3 (0.00-0.68); EOSINOPHILS PERCENT AUTO 0 % (0-6); Hematocrit 42.9 % (33.0-51.0); Hemoglobin 12.9 g/dL (11.5-16.0); IMMATURE GRAN ABSOLUTE AUTO 0.41 K/mm3 (0.00-0.10); IMMATURE GRAN PERCENT AUTO 2 % (0-1); LYMPHOCYTES ABSOLUTE AUTO 1.52 K/mm3 (0.84-5.20); LYMPHOCYTES PERCENT AUTO 8 % (21-46); MONOCYTES ABSOLUTE AUTO 1.41 K/mm3 (0.16-1.47); MONOCYTES PERCENT AUTO 8 % (4-13); Mean Corpuscular HGB 27.3 pg (26.0-34.0); Mean Corpuscular HGB Conc 30.1 g/dL (31.5-36.5); Mean Corpuscular Volume 91 fL (80-100); Mean Platelet Volume 11.5 fL (9.1-12.4); NEUTROPHILS PERCENT AUTO 81 % (41-73); NRBC Auto 0.5 /100 WBC (0.0-0.2); Platelet Count 218 K/mm3 (150-400); RDW Coefficient Variation 17.7 % (11.7-14.2); RDW Standard Deviation 57.6 fL (35.1-46.3); Red Blood Cell Count 4.73 M/mm3 (3.80-5.20)
[2024-02-13 13:58] LABS: Bun/Creatinine Ratio 29.7 (12.0-20.0); Calcium, Blood 9.5 mg/dL (8.5-10.1); Creatinine, Blood 0.84 mg/dL (0.40-1.00); Potassium, Blood 4.7 mmol/L (3.5-5.5)
[2024-02-13] MEDS ORDERED: Doxycycline Hyclate 100 MG in Dextrose 5% 250 ML IV ONE (14:50)
[2024-02-13 15:14] LABS: Influenza A, PCR NEGATIVE (NEGATIVE); Influenza B, PCR NEGATIVE (NEGATIVE); Resp Syncytial Virus, PCR NEGATIVE (NEGATIVE); SARS-Cov-2 (COVID-19) PCR, MMC NEGATIVE (NEGATIVE)
[2024-02-13] MEDS ORDERED: Furosemide 10 MG/ML 4ML Vial IV ONE ×2 (15:20→17:55)
[2024-02-13] MEDS ORDERED: Ondansetron 4 MG TAB PO PRN (17:35)
[2024-02-13] MEDS ORDERED: Ondansetron HCl 2 MG / ML 2ML Vial IV PRN (17:35)
[2024-02-13] MEDS ORDERED: Metoclopramide HCl 5MG / ML 2ML Vial IV PRN (17:35)
[2024-02-13 17:38] LABS: Source, Urine Foley catheter
[2024-02-13 17:45] LABS: Appearance, Urine Cloudy (Clear); Blood, Urine 2+ (Neg); Color, Urine Yellow (P-Yellow); Glucose Qualitative, Urine Neg (Neg); Ketones, Urine Neg (Neg); Leukocyte Esterase, Urine 3+ (Neg); Nitrite, Urine Pos (Neg); Protein, Urine 2+ (Neg); Urobilinogen, Urine 2+ (Normal)
[2024-02-13 17:51] LABS: Bilirubin, Urine 1+ (Neg)
[2024-02-13 17:52] LABS: Bacteria Many /hpf; Hyaline Casts 0-2 /lpf (0-2); Squamous Epithelial Cells Few /hpf (Few); White Blood Cells, Urine 50-100 /hpf (0-5); Yeast/Fungi Urine Few /hpf
[2024-02-13] MEDS ORDERED: Enoxaparin 40 MG/0.4 ML SYR SC SCH (18:00)
[2024-02-13 18:48] VITALS: BP 130/88
[2024-02-13 19:30] VITALS: BP 110/65; BP 131/81
--- NOTE | 2024-02-13 19:49 | NUR ---
ARRIVAL NOTE PT TO PCU 2 FROM ER. PT IS A/OX4, USES WHEELCHAIR AT BASELINE, IS ALERT AND ABLE TO FOLLOW COMMANDS. PT TRANSFERED TO BED FROM [facility] W/ SLIDE SHEET. ASSISTED PT W/ PUTTING ON HOSPITAL GOWN. BP STABLE, PT IS SLIGHTLY TACHYPNEIC W/ RR OF 20-24, O2 SATS 93% ON 6LNC. PT IS TACHY 100-110'S SINUS RHYTHM, ECHO TECH VERIFIED TELE W/ AIR TRAFFIC COORDINATOR. PT WAS ABLE TO TURN 2 ASST, MULTIPLE PRESSURE ULCERS ON COCCYX PT STATES ARE CHRONIC, WOUND CARE FROM [facility] AT HOME. REMOVED OLD MEPILEX AND APPLIED NEW MEPILEX TO WOUNDS/RED AREAS, PHOTOS IN CHART. JACK FERRIS TO NOTIFY PROVIDER OF PRESSURE ULCERS. PT HAS CHRONIC WALSH AND REFUSED NEW WALSH IN ER PER REPORT FROM JOSY JACKSON. PT MORE AGREEABLE TO NEW WALSH UPON ADMIT, JACK FERRIS INFORMED. PT STATES SHE HAS A CAREGIVER AT HOME THAT HELPS ON FRIDAYS BUT OTHERWISE LIVES ALONE AND CARES FOR HERSELF. PT CURRENTLY RESTING IN BED W/ CALL LIGHT IN REACH, REPORT TO JACK FERRIS.
[2024-02-13] MEDS ORDERED: FLU VACC TS2024-25(6MOS UP)/PF 45 MCG/0.5 ML SYRINGE IM ONE (20:00)
[2024-02-13] MEDS ORDERED: Famotidine 20 MG Tab PO SCH (21:00)
--- NOTE | 2024-02-13 21:41 | NUR ---
notified resident @ 1999 about pt's coccyx/gluteal wounds and excoriation. he came to pt room and looked at photos in chart.
[2024-02-14 03:30] VITALS: BP 127/78
--- NOTE | 2024-02-14 04:14 | NUR ---
SHIFT SUMMARY 74 YR F ADMITTED ON 02/13/24. FULL CODE. NO ACUTE CHANGES THIS SHIFT. PT HAS SLEPT FOR MOST OF THIS SHIFT. UNABLE TO WAKE HER FOR 2100 ORAL MED BUT WAS ABLE TO GIVE LOVENOX INJECTION. PT WOKE BRIEFLY AT ONE POINT AND WANTED TO WATCH TV. SHE AGAIN REFUSED A NEW WALSH CATHETER. OTHERWISE, SHE IS VERY PLEASANT. SHE IS CURRENTLY SLEEPING WITH A FAN RIGHT NEXT TO HER FACE. COCCYX BANDAGES ARE C/D/I. PT REPOSITIONED TO RELEIVE PRESSURE FROM COCCYX AND FOR COMFORT. NO OTHER CHANGES TO REPORT. BED IN LOW POSITION AND CALL LIGHT IN REACH.
[2024-02-14 05:08] LABS: BASOPHILS ABSOLUTE AUTO 0.11 K/mm3 (0.00-0.23); BASOPHILS PERCENT AUTO 1 % (0-2); EOSINOPHILS ABSOLUTE AUTO 0.05 K/mm3 (0.00-0.68); EOSINOPHILS PERCENT AUTO 0 % (0-6); Hematocrit 42.3 % (33.0-51.0); Hemoglobin 12.9 g/dL (11.5-16.0); IMMATURE GRAN ABSOLUTE AUTO 0.29 K/mm3 (0.00-0.10); IMMATURE GRAN PERCENT AUTO 2 % (0-1); LYMPHOCYTES ABSOLUTE AUTO 1.53 K/mm3 (0.84-5.20); LYMPHOCYTES PERCENT AUTO 10 % (21-46); MONOCYTES ABSOLUTE AUTO 1.28 K/mm3 (0.16-1.47); MONOCYTES PERCENT AUTO 9 % (4-13); Mean Corpuscular HGB 27.2 pg (26.0-34.0); Mean Corpuscular HGB Conc 30.5 g/dL (31.5-36.5); Mean Corpuscular Volume 89 fL (80-100); NEUTROPHILS PERCENT AUTO 78 % (41-73); NRBC ABSOLUTE 0.09 K/mm3 (0.00-0.02); NRBC Auto 0.6 /100 WBC (0.0-0.2); RDW Coefficient Variation 17.7 % (11.7-14.2); RDW Standard Deviation 55.2 fL (35.1-46.3); Red Blood Cell Count 4.75 M/mm3 (3.80-5.20); White Blood Cell Count 14.96 K/mm3 (4.00-11.30)
[2024-02-14 05:30] LABS: Platelet Count 154 K/mm3 (150-400)
[2024-02-14 05:52] LABS: Albumin, Blood 2.6 g/dL (3.4-5.0); Albumin/Globulin Ratio 0.6 (0.8-1.8); Bilirubin, Total 0.6 mg/dL (0.1-1.0); Bun/Creatinine Ratio 34.5 (12.0-20.0); Calcium, Blood 9.1 mg/dL (8.5-10.1); Creatinine, Blood 0.67 mg/dL (0.40-1.00); Globulin, Blood 4.6 g/dL (2.2-4.0); Potassium, Blood 5.1 mmol/L (3.5-5.5); Total Protein, Blood 7.2 g/dL (6.4-8.2)
[2024-02-14 07:33] VITALS: BP 115/68
[2024-02-14] MEDS ORDERED: CefTRIAXone Sodium 2,000 MG in NS 100 ML IV SCH (09:00)
[2024-02-14 11:04] VITALS: BP 91/68
[2024-02-14 11:57] VITALS: BP 120/85
[2024-02-14] MEDS ORDERED: Furosemide 10 MG/ML 4ML Vial IV SCH (14:00)
[2024-02-14 15:46] VITALS: BP 130/93
--- NOTE | 2024-02-14 16:20 | NUR ---
SHIFT SUMMARY: PT ALERT AND ORIENTED X3, ABLE TO FOLLOW COMMANDS AND MAKE NEEDS KNOWN. FORGETFUL AT TIMES, BED ALARM ON FOR SAFETY. BP AND HR STABLE, AFEBRILE, SPO2 >94% ON 2L NC. LUNG SOUNDS DIM IN BASES, RESPIRTAIONS EVEN AND UNLABORED AT REST. ABD DISTENDED, BOWEL SOUNDS +. L. PEDAL PULSE REMAINS FAINT AND FOOT COOL TO TOUCH, MD AWARE. WALSH CATHETER CHANGED THIS AFTERNOON, PATENT AND DRAINING YELLOW URINE TO GRAVITY. PT REPOS Q2 TO MAINTAIN SKIN INTEGRITY. NO BM. PT NOW MEDICAL WITH TELE STATUS. BED IN LOW, CALL LIGHT IN REACH, WILL REPORT TO ONCOMING RN.
[2024-02-14 20:50] VITALS: BP 103/68
[2024-02-14] MEDS ORDERED: Magnesium Hydroxide Conc 10 ML UDC PO PRN (22:55)
[2024-02-14] MEDS ORDERED: OxyCODONE HCL 5 MG TAB PO PRN (22:55)
[2024-02-14] MEDS ORDERED: Bisacodyl 10 MG Supp PR PRN (22:55)
[2024-02-14] MEDS ORDERED: Cyclobenzaprine HCl 10 MG Tab PO PRN (22:55)
[2024-02-14] MEDS ORDERED: Aspirin/Caffeine/Butalbital 1 CAP PO PRN (23:00)
[2024-02-15 00:01] VITALS: BP 110/73
[2024-02-15 03:54] VITALS: BP 117/71
--- NOTE | 2024-02-15 05:17 | NUR ---
PT REMAINS A&OX4. VSS. PT TRANSITIONED OFF OF OXYGEN THIS AM AT >92% RA. DOING WELL. PT CONTINUES TO HAVE ADEQUATE OUTPUT THROUGH CHRONIC WALSH. NO FURTHER QUESTIONS OR CONCERNS AT THIS TIME. PT REPOSITIONED IN BED THROUGHOUT NIGHT. WILL CONTINUE TO MONITOR UNTIL REPORT GIVEN TO ONCOMING NURSE.
[2024-02-15 05:24] LABS: BASOPHILS ABSOLUTE AUTO 0.05 K/mm3 (0.00-0.23); BASOPHILS PERCENT AUTO 1 % (0-2); EOSINOPHILS ABSOLUTE AUTO 0.16 K/mm3 (0.00-0.68); EOSINOPHILS PERCENT AUTO 2 % (0-6); Hematocrit 36.9 % (33.0-51.0); Hemoglobin 10.9 g/dL (11.5-16.0); IMMATURE GRAN ABSOLUTE AUTO 0.11 K/mm3 (0.00-0.10); IMMATURE GRAN PERCENT AUTO 1 % (0-1); LYMPHOCYTES ABSOLUTE AUTO 1.28 K/mm3 (0.84-5.20); LYMPHOCYTES PERCENT AUTO 13 % (21-46); MONOCYTES ABSOLUTE AUTO 0.89 K/mm3 (0.16-1.47); MONOCYTES PERCENT AUTO 9 % (4-13); Mean Corpuscular HGB 26.9 pg (26.0-34.0); Mean Corpuscular HGB Conc 29.5 g/dL (31.5-36.5); Mean Corpuscular Volume 91 fL (80-100); Mean Platelet Volume 11.4 fL (9.1-12.4); NEUTROPHILS ABSOLUTE AUTO 7.48 K/mm3 (1.96-9.15); NEUTROPHILS PERCENT AUTO 75 % (41-73); Platelet Count 127 K/mm3 (150-400); RDW Standard Deviation 55.4 fL (35.1-46.3); Red Blood Cell Count 4.05 M/mm3 (3.80-5.20); White Blood Cell Count 9.97 K/mm3 (4.00-11.30)
[2024-02-15 05:51] LABS: Albumin, Blood 2.5 g/dL (3.4-5.0); Albumin/Globulin Ratio 0.6 (0.8-1.8); Bilirubin, Total 0.5 mg/dL (0.1-1.0); Calcium, Blood 8.9 mg/dL (8.5-10.1); Creatinine, Blood 0.59 mg/dL (0.40-1.00); Potassium, Blood 3.5 mmol/L (3.5-5.5); Total Protein, Blood 6.5 g/dL (6.4-8.2)
[2024-02-15] MEDS ORDERED: Lactobacil 2-S.Thermo-Bifido 1 1 Cap PO SCH (09:00)
[2024-02-15] MEDS ORDERED: Ascorbic Acid 250 MG Chew PO SCH (09:00)
[2024-02-15] MEDS ORDERED: oxyBUTYnin chloride 5 MG TAB PO SCH (09:00)
[2024-02-15] MEDS ORDERED: Gabapentin 300 MG Cap PO SCH (09:00)
[2024-02-15] MEDS ORDERED: Sulindac 200 MG Tab PO SCH (09:00)
[2024-02-15] MEDS ORDERED: Propranolol HCL 60 MG CAPCR PO SCH (09:00)
[2024-02-15] MEDS ORDERED: Multivitamins 1 Tab PO SCH (09:00)
[2024-02-15 09:13] VITALS: BP 126/60
[2024-02-15] MEDS ORDERED: CEFD300 PO (14:06)
--- NOTE | 2024-02-15 15:07 | NUR ---
DISCHARGE: PT D/C PCU 2 @6560. DISCHARGE INSTRUCTIONS AND EDUCATION PROVIDED. PT D/C HOME VIA MEDICAL TRANSPORT.
== END 2024-02-15 15:08 | disposition home or self-care (01) | DRG 193 ==
LOC: ER 13:09 → PCU 17:11
PROVIDERS: Emergency Medicine; ADMIT Internal Medicine
DX: J18.9 Pneumonia, unspecified organism (principal); I50.31 Acute diastolic (congestive) heart failure; J96.01 Acute respiratory failure with hypoxia; T83.511A Infection and inflammatory reaction due to indwelling urethral catheter, initial encounter; G82.20 Paraplegia, unspecified; E87.1 Hypo-osmolality and hyponatremia; Z68.42 Body mass index [BMI] 45.0-49.9, adult; Z28.21 Immunization not carried out because of patient refusal; Z99.3 Dependence on wheelchair; Z74.01 Bed confinement status; G47.33 Obstructive sleep apnea (adult) (pediatric); K21.9 Gastro-esophageal reflux disease without esophagitis; G43.909 Migraine, unspecified, not intractable, without status migrainosus; E66.01 Morbid (severe) obesity due to excess calories; M48.00 Spinal stenosis, site unspecified; I27.20 Pulmonary hypertension, unspecified; I11.0 Hypertensive heart disease with heart failure; Z88.8 Allergy status to other drugs, medicaments and biological substances; Z88.5 Allergy status to narcotic agent; Z79.899 Other long term (current) drug therapy
CPT/HCPCS: 0241U; 36415; 51702; 71045; 71260; 80048; 80053; 81001; 83605; 83880; 84484; 85025; 85379; 87086; 93005; 93010; 94762; 96365; 96375; 99285-25; A9270; C8929; J0696; J1650; J1940; J7060; Q9957; Q9967

== ENCOUNTER 2024-02-17 13:27 | Inpatient (IN) | payer OTHER ==
[~2024-02-17] VITALS: Ht 152.4 cm; Wt 102.8 kg
[~2024-02-17 13:27] MED LIST changes: +CEFD300 PO
[2024-02-17 14:50] LABS: BASOPHILS ABSOLUTE AUTO 0.07 K/mm3 (0.00-0.23); BASOPHILS PERCENT AUTO 1 % (0-2); EOSINOPHILS ABSOLUTE AUTO 0.49 K/mm3 (0.00-0.68); EOSINOPHILS PERCENT AUTO 4 % (0-6); Hematocrit 42.6 % (33.0-51.0); Hemoglobin 12.2 g/dL (11.5-16.0); IMMATURE GRAN ABSOLUTE AUTO 0.14 K/mm3 (0.00-0.10); IMMATURE GRAN PERCENT AUTO 1 % (0-1); LYMPHOCYTES ABSOLUTE AUTO 1.75 K/mm3 (0.84-5.20); LYMPHOCYTES PERCENT AUTO 15 % (21-46); MONOCYTES ABSOLUTE AUTO 1.03 K/mm3 (0.16-1.47); MONOCYTES PERCENT AUTO 9 % (4-13); Mean Corpuscular HGB 26.7 pg (26.0-34.0); Mean Corpuscular HGB Conc 28.6 g/dL (31.5-36.5); Mean Corpuscular Volume 93 fL (80-100); Mean Platelet Volume 10.9 fL (9.1-12.4); NEUTROPHILS ABSOLUTE AUTO 8.56 K/mm3 (1.96-9.15); NEUTROPHILS PERCENT AUTO 71 % (41-73); Platelet Count 159 K/mm3 (150-400); RDW Coefficient Variation 17.4 % (11.7-14.2); RDW Standard Deviation 59.8 fL (35.1-46.3); Red Blood Cell Count 4.57 M/mm3 (3.80-5.20); White Blood Cell Count 12.04 K/mm3 (4.00-11.30)
[2024-02-17 15:12] LABS: Albumin, Blood 2.7 g/dL (3.4-5.0); Albumin/Globulin Ratio 0.6 (0.8-1.8); Bilirubin, Total 0.6 mg/dL (0.1-1.0); Bun/Creatinine Ratio 20.5 (12.0-20.0); Calcium, Blood 9.3 mg/dL (8.5-10.1); Creatinine, Blood 0.59 mg/dL (0.40-1.00); Globulin, Blood 4.4 g/dL (2.2-4.0); Potassium, Blood 4.2 mmol/L (3.5-5.5); Total Protein, Blood 7.1 g/dL (6.4-8.2)
[2024-02-17] MEDS ORDERED: Azithromycin 500 MG in NS 250 ML IV ONE (18:50)
[2024-02-17] MEDS ORDERED: Ipratropium/Albuterol SulF 2.5-0.5MG/3 ML Amp INH ONE (18:50)
[2024-02-17] MEDS ORDERED: CefTRIAXone Sodium 1,000 MG in NS 100 ML IV ONE (18:50)
[2024-02-17 20:14] LABS: Influenza A, PCR NEGATIVE (NEGATIVE); Influenza B, PCR NEGATIVE (NEGATIVE); Resp Syncytial Virus, PCR NEGATIVE (NEGATIVE); SARS-Cov-2 (COVID-19) PCR, MMC NEGATIVE (NEGATIVE)
[2024-02-17] MEDS ORDERED: Lactobacil 2-S.Thermo-Bifido 1 1 Cap PO SCH (21:00)
[2024-02-17] MEDS ORDERED: NS 1,000 ML IV SCH (21:00)
[2024-02-17] MEDS ORDERED: NS 500 ML IV ONE (21:00)
[2024-02-17] MEDS ORDERED: Albuterol 2.5 MG/3 ML VIAL INH PRN (21:05)
[2024-02-17] MEDS ORDERED: Ondansetron HCl 2 MG / ML 2ML Vial IV PRN (21:05)
[2024-02-17] MEDS ORDERED: FLU VACC TS2024-25(6MOS UP)/PF 45 MCG/0.5 ML SYRINGE IM ONE (21:05)
[2024-02-17 23:57] LABS: Base Excess Venous 10.2 mmol/L; Bicarbonate Venous 32.1 mmol/L (24.0-30.0); PCO2 Venous 59.6 mmHg (38-42); pH Blood Venous 7.38 (7.34-7.37)
[2024-02-18 01:40] VITALS: BP 98/78
[2024-02-18 03:41] VITALS: BP 118/69
[2024-02-18 05:07] LABS: BASOPHILS ABSOLUTE AUTO 0.05 K/mm3 (0.00-0.23); BASOPHILS PERCENT AUTO 1 % (0-2); EOSINOPHILS ABSOLUTE AUTO 0.22 K/mm3 (0.00-0.68); EOSINOPHILS PERCENT AUTO 2 % (0-6); Hematocrit 40.6 % (33.0-51.0); Hemoglobin 11.2 g/dL (11.5-16.0); IMMATURE GRAN ABSOLUTE AUTO 0.08 K/mm3 (0.00-0.10); IMMATURE GRAN PERCENT AUTO 1 % (0-1); LYMPHOCYTES ABSOLUTE AUTO 1.07 K/mm3 (0.84-5.20); LYMPHOCYTES PERCENT AUTO 11 % (21-46); MONOCYTES ABSOLUTE AUTO 0.97 K/mm3 (0.16-1.47); MONOCYTES PERCENT AUTO 10 % (4-13); Mean Corpuscular HGB 26.7 pg (26.0-34.0); Mean Corpuscular HGB Conc 27.6 g/dL (31.5-36.5); Mean Corpuscular Volume 97 fL (80-100); Mean Platelet Volume 11.3 fL (9.1-12.4); NEUTROPHILS ABSOLUTE AUTO 7.53 K/mm3 (1.96-9.15); NEUTROPHILS PERCENT AUTO 76 % (41-73); Platelet Count 112 K/mm3 (150-400); RDW Coefficient Variation 17.2 % (11.7-14.2); RDW Standard Deviation 61.1 fL (35.1-46.3); Red Blood Cell Count 4.19 M/mm3 (3.80-5.20); White Blood Cell Count 9.92 K/mm3 (4.00-11.30)
[2024-02-18] MEDS ORDERED: Cefepime HCl 1,000 MG in NS 100 ML IV SCH (05:33)
[2024-02-18] MEDS ORDERED: Vancomycin HCL 2,000 MG in NS 500 ML IV ONE (05:50)
[2024-02-18 05:55] LABS: Magnesium, Blood 2.2 mg/dL (1.6-2.4)
[2024-02-18 05:56] LABS: Albumin, Blood 2.6 g/dL (3.4-5.0); Albumin/Globulin Ratio 0.6 (0.8-1.8); Bilirubin, Total 0.4 mg/dL (0.1-1.0); Bun/Creatinine Ratio 18.7 (12.0-20.0); Calcium, Blood 8.9 mg/dL (8.5-10.1); Creatinine, Blood 0.64 mg/dL (0.40-1.00); Globulin, Blood 4.1 g/dL (2.2-4.0); Potassium, Blood 4.2 mmol/L (3.5-5.5); Total Protein, Blood 6.7 g/dL (6.4-8.2)
--- NOTE | 2024-02-18 06:44 | NUR ---
SHIFT SUMMARY PATIENT ARRIVED TO PCU 20 AT 0138 VIA STRETCHER, SLIDE TRANSFER COMPLETED. PATIENT WAS LETHARGIC UPON TRANSFER, UNABLE TO ANSWER ORIENTATION QUESTIONS. CHRONIC INDWELLING WALSH CATHETER CHANGED UPON ADMIT. PATIENT ON 2-3 LITERS O2 VIA NC WHILE AWAKE AND CPAP FOR SLEEP. VITAL SIGNS STABLE. PATIENT WOKE UP FOR A FEW MINUTES THIS MORNING AND HAD CLEARED COGNITIVELY AND WAS ABLE TO REMEMBER THE TIMELINE OF EVENTS THAT BROUGHT HER TO THE HOSPITAL, THEN FELL ASLEEP AGAIN. WILL CONTINUE TO MONITOR. CALL LIGHT WITHIN REACH.
[2024-02-18 07:41] VITALS: BP 117/72
--- NOTE | 2024-02-18 08:37 | NUR ---
Speech therapist Merissa is with pt at this time.
--- NOTE | 2024-02-18 08:41 | NUR ---
NURSE NOTE SPEECH CURRENTLY EVAULATING PATIENT. PATIENT PLACED NPO THIS MORNING BY THIS RN AFTER BEING UNABLE TO SWALLOW WATER CORRECTLY AND BEGINING TO COUGH. CALL LIGHT IN REACH, WILL CONTINUE TO TREAT.
[2024-02-18] MEDS ORDERED: Enoxaparin 40 MG/0.4 ML SYR SC SCH (09:00)
[2024-02-18] MEDS ORDERED: Famotidine 10 MG/ML 2ML Vial IV SCH (09:00)
[2024-02-18 12:29] VITALS: BP 120/74
[2024-02-18 16:10] VITALS: BP 93/66
--- NOTE | 2024-02-18 17:54 | NUR ---
SHIFT SUMMARY A+O X4, ABLE TO MAKE NEEDS KNOW, MOVES UPPER EXTERMITIES IN BED. PATIENT IS WHEELCHAIR BOUND AT BASELINE BUT ABLE TO SIT AT EDGE OF BED AND EAT MEALS. PATIENT Q2 TURNS DUE TO EXISTING PRESSURE INJURIES ON HER COCCYX. CHRONIC WALSH CATH IN PLACE DRAINING TO GRAVITY. PATIENT REMAINS ON 2-3 LITERS NC THROUGHTOUT SHIFT. PATIENT HOME DEPUTY SHERIFF LIEUTENANT VISITED PATIENT TODAY, [facility] WAS CONTACTED TO UPDATE THEM THAT PATIENT WAS IN THE HOSPITAL. NO ACUTE CHANGES THIS SHIFT. CALL LIGHT IN REACH, WILL CONTINUE TO TREAT.
[2024-02-18] MEDS ORDERED: Vancomycin HCL 1,250 MG in NS 250 ML IV SCH (18:00)
[2024-02-18] MEDS ORDERED: Gabapentin 300 MG Cap PO SCH (21:00)
[2024-02-18] MEDS ORDERED: Famotidine 20 MG Tab PO SCH (21:00)
[2024-02-18] MEDS ORDERED: Azithromycin 500 MG in NS 250 ML IV SCH (21:00)
[2024-02-18] MEDS ORDERED: CefTRIAXone Sodium 1,000 MG in NS 100 ML IV SCH (21:00)
--- NOTE | 2024-02-19 02:19 | NUR ---
TELEMETRY CHANGE: PATIENT CONVERTED INTO A 2' TYPE 2. RESIDENT NOTIFIED, ZOLL AT BEDSIDE, PER RESIDENT. PATIENT DROP TO TELE RATE OF 26, AND PRIOR IN THE 30'S. ADDITIONALLY, ATTEMPT TO GET AN EKG OF EVENT. PATIENT HAS BEEN ASYMPTOMATIC AND TYPICALLY ONLY HAPPENS WHEN SLEEPING. PROVIDER TO PLACE CARDIOLOGY CONSULT.
[2024-02-19 03:32] VITALS: BP 143/74
[2024-02-19 04:38] LABS: BASOPHILS ABSOLUTE AUTO 0.03 K/mm3 (0.00-0.23); BASOPHILS PERCENT AUTO 0 % (0-2); EOSINOPHILS ABSOLUTE AUTO 0.33 K/mm3 (0.00-0.68); EOSINOPHILS PERCENT AUTO 4 % (0-6); Hematocrit 33.6 % (33.0-51.0); Hemoglobin 9.7 g/dL (11.5-16.0); IMMATURE GRAN ABSOLUTE AUTO 0.05 K/mm3 (0.00-0.10); IMMATURE GRAN PERCENT AUTO 1 % (0-1); LYMPHOCYTES ABSOLUTE AUTO 1.09 K/mm3 (0.84-5.20); LYMPHOCYTES PERCENT AUTO 13 % (21-46); MONOCYTES ABSOLUTE AUTO 0.54 K/mm3 (0.16-1.47); MONOCYTES PERCENT AUTO 7 % (4-13); Mean Corpuscular HGB Conc 28.9 g/dL (31.5-36.5); Mean Corpuscular Volume 94 fL (80-100); NEUTROPHILS ABSOLUTE AUTO 6.29 K/mm3 (1.96-9.15); NEUTROPHILS PERCENT AUTO 75 % (41-73); Platelet Count 95 K/mm3 (150-400); RDW Coefficient Variation 16.6 % (11.7-14.2); RDW Standard Deviation 56.7 fL (35.1-46.3); Red Blood Cell Count 3.59 M/mm3 (3.80-5.20); White Blood Cell Count 8.33 K/mm3 (4.00-11.30)
--- NOTE | 2024-02-19 04:53 | NUR ---
EOS: NO FURTHER EVENTS, THROUGH THE NIGHT, UNABLE TO CAPTURE EKG OF RYHTHM CHANGE WILL CONNECTED, ZOLL AT BEDSIDE. DENIES CHEST PAIN PRESSURE OR SOB. USES HER HOME CPAP WELL. NO FURTHER ACUTE CONCERNS, CATH CARE PROVIDED. PLAN OF CARE CONTINUES.
[2024-02-19 05:24] LABS: Albumin, Blood 2.3 g/dL (3.4-5.0); Albumin/Globulin Ratio 0.6 (0.8-1.8); Bilirubin, Total 0.5 mg/dL (0.1-1.0); Bun/Creatinine Ratio 19.2 (12.0-20.0); Calcium, Blood 8.6 mg/dL (8.5-10.1); Creatinine, Blood 0.57 mg/dL (0.40-1.00); Globulin, Blood 3.6 g/dL (2.2-4.0); Potassium, Blood 4.2 mmol/L (3.5-5.5); Total Protein, Blood 5.9 g/dL (6.4-8.2)
[2024-02-19 07:53] VITALS: BP 134/87
[2024-02-19] MEDS ORDERED: Propranolol HCL 60 MG CAPCR PO SCH (09:00)
[2024-02-19] MEDS ORDERED: oxyBUTYnin chloride 5 MG TAB PO SCH (09:00)
[2024-02-19] MEDS ORDERED: Spironolactone 25 MG Tab PO SCH (09:00)
--- NOTE | 2024-02-19 09:38 | NUR ---
NURSE NOTE ASSUMED CARE OF THIS PATIENT AT 0700. PATIENT IS A+OX4 THIS AM. PT DID NOT WEAR HOME CPAP LAST NIGHT. PATIENT IS NOW ON 1 LITER NC SATURATING ABOVE 95% ON CONTINUS PULSE OX. OFF GOING NOC RN REPORTED A PAUSE ON TELE AND PT TO BE IN A 2 DEGREE HEAR BLOCK, AM PROPRANOLOL WAS HELD. CALL LIGHT IN REACH, WILL CONTINUE TO TREAT.
[2024-02-19 11:25] VITALS: BP 136/71
[2024-02-19 15:31] VITALS: BP 123/66
--- NOTE | 2024-02-19 17:40 | NUR ---
SHIFT SUMMARY PATIENT IS A+O X4, ABLE TO MAKE NEEDS KNOWN. MOVES UPPER EXTERMITIES, Q2 POSTIONING THROUGHTOUT SHIFT DUE TO BI LATER PRESSURE INJURIES ON BUTTOCK, DRESSINGS WHERE CHANGED TODAY DURING BED BATH. PT LIEN ALSO CHANGED. WHEEL CHAIR BOUND AT BASELINE BUT WILL SIT AT EDGE OF BED FOR MEALS. VSS, NO CHANGES ON TELE DURING SHIFT. CARDIOLOGY ROUNDED ON PATIENT THIS AFTERNOON. [address] WITH SATUARTION ABOVE 92% ON CONTINIOUS PULSE OX. CHRONIC WALSH IN PLACE DRAINING TO GRAVITY. CALL LIGHT IN REACH, WILL CONTINUE TO TREAT UNTIL END OF SHIFT.
[2024-02-19 17:49] LABS: Vancomycin, Trough 20.5 ug/mL (5.0-10.0)
[2024-02-19] MEDS ORDERED: Vancomycin HCL 1,000 MG in NS 250 ML IV SCH (18:00)
[2024-02-19 19:07] VITALS: BP 134/83
[2024-02-19 21:44] LABS: Base Excess Venous 11.4 mmol/L; PCO2 Venous 83.7 mmHg (38-42); pH Blood Venous 7.27 (7.34-7.37)
--- NOTE | 2024-02-19 22:01 | NUR ---
ASSUMPTION OF CARE/INCREASE SOMNOLENT ON ASSESSMENT PT SOMNOLENT,AROUSES TO VOICE BUT SPEECH DOES NOT MAKE SENSE.A&O TO SELF AND PLACE.PT REFUSED TO WEAR THE CPAP,ON 1L OXYGEN VIA NASAL CANNULA.OXYGEN SATURATION WNL,NO WOB NOTED. NOTIFIED OF PT'S CHANGE IN STATUS,VBG ORDERS RECEIVED.PH RESULTED CRITICAL AT 7.27. NOTIFIED OF CRITICAL RESULTS.MD CAME TO THE BEDSIDE TO ASSESS PT,RT PLACED THE CPAP.MD STATES TOP MONITOR.
[2024-02-20] VITALS (8 sets, daily range): BP systolic 118–155; BP diastolic 70–98
--- NOTE | 2024-02-20 03:21 | NUR ---
EOS: PATIENT MUCH IMPROVED FROM ASSUMOPTION OF CARE, WORE THE CPPAP/AVAP FOR MOST OF THE NIGHT. 2L BLEED IN SPO2 >94%. PATIENT HAS BEEN SLEEPING WELL IS MORE ALERT, RESPONSIVE. VSS. NO FURTHER ACUTE EVENTS. PATIENT REFUSED MOST REPOSITIONS, CATHETER DRAINING WELL TO GRAVITY. CATH CARE PREFORMED.
[2024-02-20 04:36] LABS: BASOPHILS ABSOLUTE AUTO 0.03 K/mm3 (0.00-0.23); BASOPHILS PERCENT AUTO 1 % (0-2); EOSINOPHILS ABSOLUTE AUTO 0.21 K/mm3 (0.00-0.68); EOSINOPHILS PERCENT AUTO 3 % (0-6); Hematocrit 35.1 % (33.0-51.0); Hemoglobin 9.8 g/dL (11.5-16.0); IMMATURE GRAN ABSOLUTE AUTO 0.04 K/mm3 (0.00-0.10); IMMATURE GRAN PERCENT AUTO 1 % (0-1); LYMPHOCYTES ABSOLUTE AUTO 0.86 K/mm3 (0.84-5.20); LYMPHOCYTES PERCENT AUTO 13 % (21-46); MONOCYTES ABSOLUTE AUTO 0.57 K/mm3 (0.16-1.47); MONOCYTES PERCENT AUTO 9 % (4-13); Mean Corpuscular HGB 26.6 pg (26.0-34.0); Mean Corpuscular HGB Conc 27.9 g/dL (31.5-36.5); Mean Corpuscular Volume 95 fL (80-100); Mean Platelet Volume 11.5 fL (9.1-12.4); NEUTROPHILS PERCENT AUTO 74 % (41-73); Platelet Count 95 K/mm3 (150-400); RDW Coefficient Variation 16.9 % (11.7-14.2); Red Blood Cell Count 3.68 M/mm3 (3.80-5.20); White Blood Cell Count 6.51 K/mm3 (4.00-11.30)
[2024-02-20 05:43] LABS: Albumin, Blood 2.3 g/dL (3.4-5.0); Albumin/Globulin Ratio 0.6 (0.8-1.8); Bilirubin, Total 0.4 mg/dL (0.1-1.0); Bun/Creatinine Ratio 16.1 (12.0-20.0); Calcium, Blood 8.6 mg/dL (8.5-10.1); Creatinine, Blood 0.56 mg/dL (0.40-1.00); Globulin, Blood 3.7 g/dL (2.2-4.0); Potassium, Blood 4.1 mmol/L (3.5-5.5); Thyroid Stimulating Hormone 1.83 uIU/mL (0.360-4.800); Triiodothyronine, Free 1.39 pg/mL (2.18-3.98)
--- NOTE | 2024-02-20 11:15 | NUR ---
AM NOTE this rn assumed care at 0700. vital signs stable. tele sinus rhythm 90s. spo2 >90% on 2l nc. patient is alert and oriented x4. neuro is intact. patient is able to make needs known and uses call light appropriately. denies pain, chest pain/pressure or shortness of breath. see shift assessment for further detials. plan to continue abx and wearing bipap at night. speech in to see patient. no chnages.
[2024-02-20 15:14] LABS: Bicarbonate Venous 36.3 mmol/L (24.0-30.0); PCO2 Venous 47.5 mmHg (38-42)
--- NOTE | 2024-02-20 17:51 | NUR ---
shift summary patient vitals remain stable throughout the shift. tele sinus rhythm 80s. spo2 >95% on 2l nc. patient fell asleep this evening with cpap off and dropped into the low 80s, patient placed on cpap and is currently wearing it asleep. plan to save dinner tray so she can eat when she wakes up. no acute changes throughout the shift. plan to hopefully discharge on friday. see previous notes and charting.
[2024-02-20] MEDS ORDERED: Acetaminophen 325 MG TABLET PO PRN (19:55)
[2024-02-20] MEDS ORDERED: Arginine/Glutamine/Calcium Hmb 1 Packet PO SCH (21:00)
[2024-02-21 03:46] VITALS: BP 139/77
[2024-02-21 05:56] VITALS: BP 149/83
--- NOTE | 2024-02-21 06:32 | NUR ---
EOS: PATIENT REMAINS UNCHANGED FROM PREVIOUS SHIFT WITH PATIENT EXCEPT A 6 SECOND RUN OF SVT, PATIENT DENIES CHEST PAIN PRESSURE OR SOB. HAS HAD A STOVALL FOR MOST OF THE NIGHT, HOWEVER, WITH PROPRANOLOL HELD, COULD BE A CONTRIBUTING FACTOR. PATIENT WITH CPAP COMPLIANCE, 2L BLEED FOR 96-99%. PATIENT ON 1-2L FOR >94%. REFUSED MOST REPOSTIIOSN HOWEVER, WAS ABLE TO BE ABOUT Q4, PATIENT EDUCATED. PATIENT HAS BEEN COOEPRATIVE ALERT AND ORIENTED, NO INCREASE TO LUNGS SOUNDS. ABOUT 1450 IN URINE OUTPUT FOR THIS RN. ONLY CONCERN IS PATIENT APPEARS BE VERY MINIMALLY LARGER ABD. ENDORSES SHE IS STILL HAVING FLATULANCE. PLAN OF CARE CONTINUES.
[2024-02-21 07:12] VITALS: BP 143/73
[2024-02-21] MEDS ORDERED: Furosemide 10 MG/ML 4ML Vial IV SCH (09:00)
--- NOTE | 2024-02-21 09:00 | NUR ---
AM NOTE: PATIENT ALERT AND ORIENTED X4. BLE NEUROPATHY WITH SPINAL STENOSIS. PATIENT WHEELCHAIR BOUND AT BASELINE. BILATERAL FEET FLACCID. PATIENT ABLE TO LIFT BOTH LEGS BUT LIMITED RANGE OF MOTION. FULL RANGE OF MOTION TO BILATERAL UPPER EXTREMITIES. Q2 TURNING AND NEEDED. TELE SHOWING SR WITH HR 80'S. DENIES CHEST PAIN/PRESSURE/PALPITATIONS. MINIMAL EDEMA TO BLE. IV SALINE LOCKED. ON 1L NASAL CANNULA SATING MID 90'S. DENIES SOB/COUGH AT REST. PATIENT STATES AT TIMES SHE GETS SHORT OF BREATH WITH TALKING OR EATING. HOME MACHINE AT BEDSIDE, ALTHOUGH PATIENT STATES SHE HAS 2 MACHINES AND THIS IS THE ONE SHE DOES NOT USE. CAREGIVER TO BRING IN HOME CPAP THAT PATIENT USES NIGHTLY AT HOME. RESPIRATORY TO BE NOTIFIED WHEN PATIENTS HOME MACHINE BROUGHT IN SO SETTINGS CAN BE ADJUSTED. 1-2L BLEED IN INTO MACHINE AT NOC. BOWEL TONES PRESENT IN ALL 4 QUADRANTS. PATIENT COMPLAINS OF "BUBBLY" LIKE GAS. LARGE BOWEL MOVEMENT. TOLERATING PO DIET. CHRONIC WALSH CATH IN PLACE, CHANGED UPON ADMIT. CATH CARE COMPLETED THIS AM. EXCORIATION/REDNESS/TENDERNESS TO LOYD AREA. PRESSURE ULCERS TO COCCYX/BILATEARL BUTTOCK. MEPILEX DRESSING CHANGED AND BARRIER CREAM APPLIED. SCATTERED BRUISING NOTED TO BILATERAL ARMS FROM LAB DRAWS. CALL LIGHT IN REACH. DENIES NEEDS.
[2024-02-21] MEDS ORDERED: ONDA4ODT MM (09:26)
[2024-02-21 11:34] LABS: BASOPHILS ABSOLUTE AUTO 0.04 K/mm3 (0.00-0.23); BASOPHILS PERCENT AUTO 1 % (0-2); EOSINOPHILS ABSOLUTE AUTO 0.22 K/mm3 (0.00-0.68); EOSINOPHILS PERCENT AUTO 4 % (0-6); Hematocrit 37.9 % (33.0-51.0); Hemoglobin 10.8 g/dL (11.5-16.0); IMMATURE GRAN ABSOLUTE AUTO 0.03 K/mm3 (0.00-0.10); IMMATURE GRAN PERCENT AUTO 1 % (0-1); LYMPHOCYTES ABSOLUTE AUTO 1.07 K/mm3 (0.84-5.20); LYMPHOCYTES PERCENT AUTO 17 % (21-46); MONOCYTES ABSOLUTE AUTO 0.49 K/mm3 (0.16-1.47); MONOCYTES PERCENT AUTO 8 % (4-13); Mean Corpuscular HGB 26.7 pg (26.0-34.0); Mean Corpuscular HGB Conc 28.5 g/dL (31.5-36.5); Mean Corpuscular Volume 94 fL (80-100); Mean Platelet Volume 10.9 fL (9.1-12.4); NEUTROPHILS ABSOLUTE AUTO 4.38 K/mm3 (1.96-9.15); NEUTROPHILS PERCENT AUTO 70 % (41-73); Platelet Count 114 K/mm3 (150-400); RDW Coefficient Variation 16.7 % (11.7-14.2); RDW Standard Deviation 57.1 fL (35.1-46.3); Red Blood Cell Count 4.04 M/mm3 (3.80-5.20); White Blood Cell Count 6.23 K/mm3 (4.00-11.30)
[2024-02-21 11:46] LABS: Bun/Creatinine Ratio 21.5 (12.0-20.0); Calcium, Blood 9.1 mg/dL (8.5-10.1); Creatinine, Blood 0.51 mg/dL (0.40-1.00); Potassium, Blood 3.7 mmol/L (3.5-5.5)
[2024-02-21 11:57] VITALS: BP 128/88
[2024-02-21 16:36] VITALS: BP 117/66
--- NOTE | 2024-02-21 18:41 | NUR ---
SHIFT SUMMARY: NO ACUTE CHANGES, SEE PREVIOUS NOTE. PATIENT REMAINS ON 1L NASAL CANNULA WHEN AWAKE AND WEARING HOME AVAP MACHINE WHEN ASLEEP WITH 2L BLEED IN. CAREGIVER TO BRING IN CORRECT HOME MACHINE TONIGHT. TELE CONTINUES TO SHOW SR WITH HR 80'S. DENIES PAINS. WALSH CATH DRAINING CLEAR/YELLOW URINE. Q2 TURNING PATIENT ALLOWS. IV SALINE LOCKED POST IV ABX INFUSION. CALL LIGHT IN REACH. DENIES NEEDS AT THIS TIME.
[2024-02-21 19:51] VITALS: BP 118/81
--- NOTE | 2024-02-21 21:37 | NUR ---
ASSUMPTION OF CARE ASSUMMED CARE OF PT AT 1900.PT SITTING UP IN BED EATING DINNER.NICO DANIEL,PATENT,DRAINING YELLOW URINE.PT ON1L OXYGEN VIA NASAL CANNULA.PT DENIES PAIN,DENIES NEEDS,AT THIS TIME,WILL CONTINUE TO MONITOR.
[2024-02-22] VITALS (7 sets, daily range): BP systolic 117–136; BP diastolic 67–85
--- NOTE | 2024-02-22 06:17 | NUR ---
END OF SHIFT ASSESSMENT PT HAS BEEN SLEEPING MOST OF THE NIGHT.PT REPORTS TOLERATING THE CPAP BROUGHT IN YESTERDAY BY HER CAREGIVER BETTER.HAD ONE EPISODE ON DIARRHEA,DRESSING TO BUTTOCKS.PT DENIES PAIN,DENIES NEEDS.WILL CONTINUE TO MONITOR.
--- NOTE | 2024-02-22 10:26 | NUR ---
AM NOTE: PATIENT ALERT AND ORIENTED. WHEELCHAIR BOUND AT BASELINE, Q2 TURNING PATIENT ALLOWS. DENIES PAINS THIS AM. TELE CONTINUES TO SHOW SR WITH HR 70-80'S. DENIES CHEST PAIN/PRESSURE/PALPITATIONS. TITRATED TO ROOM AIR THIS AM AND SATING 95%. DENIES SOB. OCCASIONAL COUGH. LUNG SOUNDS CLEAR AND DIM IN BASES. HOME CPAP AT BEDSIDE. DENIES ABDOMINAL PAIN/NAUSEA. TOLERATING PO DIET. WALSH CATH IN PLACE DRAINING CLEAR/YELLOW URINE. BOWEL TONES PRESENT. FRIEND AT BEDSIDE THIS AM VISITING WITH PATIENT. DR. LIAS AND DR. WESTBROOK AT BEDSIDE. NO NEW ORDERS FOR THIS RN TO PLACE. POSSIBLE DISCHARGE THIS AFTERNOON. CALL LIGHT IN REACH.
[2024-02-22] MEDS ORDERED: Acetaminophen650 M1 PO (12:39)
[2024-02-22] MEDS ORDERED: JUVEN PACKET1 EAC3 PO (12:39)
[2024-02-22] MEDS ORDERED: PROBIOTIC1 EA13 PO (12:40)
[2024-02-22] MEDS ORDERED: AMOCLA875 PO (12:40)
[2024-02-22] MEDS ORDERED: Calcium Carbonate 500 MG Tab Chew PO PRN (14:25)
--- NOTE | 2024-02-22 16:05 | NUR ---
PLAN FOR DISCHARGE TOMORROW. [facility] TRANSPORT AROUND 11AM WITH RECLINER WHEELCHAIR/STAIR CHAIR. PATIENT TO CALL IN AM AND PAY. CAREGIVER TO BE AT HOUSE UPON ARRIVAL. PLAN FOR SLEEP STUDY TONIGHT TO ASSESS OXYGEN NEEDS WITH CPAP. PATIENT NEEDING OCCASIONAL 1L NASAL CANNULA THIS EVENING. HOME O2 STUDY TOMORROW IF NEEDED. ZIO PATCH ORDERS IN PLACE AND TO BE PLACED TOMORROW MORNING IF POSSIBLE PRIOR TO DISCHARGE. IF NOT ABLE TO PLACE DR. DARIANA MORALES WITH ZIO PATCH PLACED AT CARDIOLOGY FOLLOW UP APPOINTMENT. [facility]ARD[facility]. DISCHARGE MEDICATION LIST SENT TO [facility]. SEE PAPER CHART FOR FAXED CARDIAC REF AND FAXED DISCHARGE MED LIST. PATIENT AND PATIENT CAREGIVER UPDATED ON PLAN OF CARE.
--- NOTE | 2024-02-22 18:11 | NUR ---
SHIFT SUMMARY: NO ACUTE CHANGES. PLAN FOR DISCHARGE TOMORROW MORNING. PATIENT REMAINS SR. VITAL SIGNS STABLE. NEEDING 1L PLACED THIS EVENING AND PATIENT SATING 94-95%. TOLERATING PO DIET. ONE BOWEL MOVEMENT THIS SHIFT. Q2 TURNING AND NEEDED. COCCYX/BUTTOCK MEPILEX CHANGED TODAY. WALSH CATH DRAINING CLEAR/YELLOW URINE. LOYD AREA CONTINUES TO BE EXCORIATED AND TENDER. HOME CPAP AT BEDSIDE. TOLERATING PO DIET. COMPLAINED OF SOME UPSET STOMACH AND REQUESTING TUMS. DR. LISA NOTIFIED AND HIEU ORDER IN PLACE. PLAN FOR SLEEP STUDY THIS EVENING. CALL LIGHT IN REACH. PATIENT EATING DINNER AT THIS TIME AND DENIES NEEDS.
[2024-02-23 00:28] VITALS: BP 102/73
[2024-02-23 04:50] VITALS: BP 139/122
--- NOTE | 2024-02-23 05:33 | NUR ---
EOS: ONLY CHANGES FROM ASSUMPTION OF CARE IS THAT SLEEP STUDY COMPLETE. CATH CARE PROVIDED AGAIN. STILL DENIES CHEST PAIN PRESSURE OR SOB. NEEDED 1 X DOSE OF TUMS. VSS AFEBRILE PLAN OF CARE CONTINUES.
[2024-02-23 07:25] VITALS: BP 131/84
--- NOTE | 2024-02-23 07:54 | NUR ---
AM NOTE: PATIENT ALERT AND ORIENTED. BLE NEUROPATHY. DENIES PAINS. LIMITED ROM DUE TO SPINAL STENOSIS. PLAN FOR DISCHARGE AROUND 11AM. Q2 TURNING AND NEEDED. TELE SHOWING SR WITH HR 70-80'S. DENIES CHEST PAIN/PRESSURE/PALPITATIONS. BLE MINIMAL EDEMA. IV SALINE LOCKED. SLEEP STUDY COMPLETED LAST NIGHT AND PATIENT WAS NOT PLACED ON OXYGEN. HOME CPAP AT BEDSIDE AND TOLERATING THROUGHOUT NIGHT. PATIENT ON ROOM AIR THIS AM SATING 91-93%. RESPIRATORY IN TO ASSESS. LUNG SOUNDS CLEAR AND DIM IN BASES. DENIES SOB/COUGH. EVEN AND UNLABORED RESPIRTATIONS. BOWEL TONES PRESENT. TOLERATING PO DIET. ATTENDS IN PLACE. CHRONIC WALSH IN PLACE, DRAINING YELLOW URINE TO GRAVITY. BILATERAL BUTTOCK PRESSURE INJURIES. LOYD AREA RED, EXCORIATED AND TENDER. DENIES ABDOMINAL PAIN/NAUSEA. SITTING UP IN BED EATING BREAKFAST AT THIS TIME.
--- NOTE | 2024-02-23 11:08 | NUR ---
DISCHARGE: NO ACUTE CHANGES. DR. LISA TO BEDSIDE PRIOR TO DC. PATIENT LEFT UNIT WITH ALL PERSONAL BELONGINGS INCLUDING 2 SEPERATE HOME CPAP MACHINES, DISCHARGE PACKET AND ALL OTHER PERSONAL ITEMS. THIS RN REVIEWED DISCHARGE AND MEDICATIONS TO STOP, TO CONTINUE AND NEW MEDICATIONS. MEDS FAXED TO [facility] YESTERDAY DAY SHIFT. CAREGIVER TO MEET PATIENT AT HOUSE AND OD GRINDER OPERATOR MEDICATION FROM [facility]. [facility] HERE TO PICK PATIENT UP. PATIENT LIFTED INTO RECLINER WHEELCHAIR. IV REMOVED WNL. ZIO PATCH PLACED THIS AM.
[2024-02-23 19:02] LABS: ALPHA 1 GLOBULIN 0.34 g/dL (0.19-0.46); ALPHA 2 GLOBULIN 0.66 g/dL (0.48-1.05); IMMUNOFIXATION REFLEX Not Done; TOTAL PROTEIN,SERUM 5.6 g/dL (6.3-8.2)
== END 2024-02-23 11:13 | disposition home health service (06) | DRG 193 ==
LOC: ER 13:27 → ERHOLD 13:28 → PCU 13:28
PROVIDERS: Emergency Medicine; Family Medicine; Nurse Practitioner Acute Care; Student in an Organized Health Care Education/Training Program; ADMIT Internal Medicine
DX: J18.9 Pneumonia, unspecified organism (principal); G92.8 Other toxic encephalopathy; J96.01 Acute respiratory failure with hypoxia; J96.02 Acute respiratory failure with hypercapnia; I50.32 Chronic diastolic (congestive) heart failure; Z68.41 Body mass index [BMI] 40.0-44.9, adult; G82.22 Paraplegia, incomplete; L89.159 Pressure ulcer of sacral region, unspecified stage; Z99.3 Dependence on wheelchair; Z74.01 Bed confinement status; K74.60 Unspecified cirrhosis of liver; K21.9 Gastro-esophageal reflux disease without esophagitis; G43.909 Migraine, unspecified, not intractable, without status migrainosus; Z28.21 Immunization not carried out because of patient refusal; I11.0 Hypertensive heart disease with heart failure; E78.5 Hyperlipidemia, unspecified; I44.1 Atrioventricular block, second degree; I27.20 Pulmonary hypertension, unspecified; E66.01 Morbid (severe) obesity due to excess calories; G47.33 Obstructive sleep apnea (adult) (pediatric); N31.9 Neuromuscular dysfunction of bladder, unspecified; M48.00 Spinal stenosis, site unspecified; Z88.5 Allergy status to narcotic agent; Z88.8 Allergy status to other drugs, medicaments and biological substances; Z88.1 Allergy status to other antibiotic agents; Z79.899 Other long term (current) drug therapy; Z98.890 Other specified postprocedural states
CPT/HCPCS: 0241U; 36415; 51702; 70450; 71045; 71260; 80048; 80053; 80202; 82140; 82784; 82803; 82947; 83521; 83735; 83880; 84145; 84155; 84165; 84439; 84443; 84481; 84484; 85025; 86334; 87040; 87070; 87205; 92526; 92610; 93005; 93010; 93246; 94640; 94660; 94664; 94762; 99285-25; A9270; C1751; J0456; J0692; J0696; J1650; J1940; J3370; J7030; J7040; J7050; Q9967

== ENCOUNTER → 2024-04-06 | Outpatient (CLI) | payer OTHER ==
[~2024-04-06] MED LIST changes: +AMOCLA875 PO; +Acetaminophen650 M1 PO; +JUVEN PACKET1 EAC3 PO; +ONDA4ODT MM; +PROBIOTIC1 EA13 PO
[2024-04-06 11:42] LABS: Source, Urine Straight Cath
[2024-04-06 13:27] LABS: Appearance, Urine Hazy (Clear); Bilirubin, Urine Neg (Neg); Blood, Urine 1+ (Neg); Color, Urine Yellow (P-Yellow); Glucose Qualitative, Urine Neg (Neg); Ketones, Urine Neg (Neg); Leukocyte Esterase, Urine 3+ (Neg); Nitrite, Urine Pos (Neg); Protein, Urine 1+ (Neg); Urobilinogen, Urine NORM (Normal)
[2024-04-06 13:46] LABS: Bacteria Many /hpf; Squamous Epithelial Cells Few /hpf (Few); White Blood Cells, Urine 25-50 /hpf (0-5)
== END ==
LOC: LAB 11:40 → LAB SHORT 11:40
PROVIDERS: Physician Assistant
DX: R39.9 Unspecified symptoms and signs involving the genitourinary system (principal); Z46.6 Encounter for fitting and adjustment of urinary device; Z87.440 Personal history of urinary (tract) infections
CPT/HCPCS: 81001; 87077; 87086; 87186

== ENCOUNTER → 2024-07-06 | Outpatient (CLI) | payer OTHER ==
[2024-07-06 14:56] LABS: Source, Urine Clean Catch
[2024-07-06 17:28] LABS: Appearance, Urine Hazy (Clear); Bilirubin, Urine Neg (Neg); Blood, Urine 3+ (Neg); Color, Urine Yellow (P-Yellow); Glucose Qualitative, Urine Neg (Neg); Ketones, Urine Neg (Neg); Leukocyte Esterase, Urine 3+ (Neg); Nitrite, Urine Pos (Neg); Protein, Urine 2+ (Neg); Specific Gravity, Urine 1.015 (1.003-1.022); Urobilinogen, Urine NORM (Normal)
[2024-07-06 18:13] LABS: Bacteria Many /hpf; Squamous Epithelial Cells Few /hpf (Few); White Blood Cells, Urine TNTC /hpf (0-5)
[2024-07-06 18:14] LABS: Transitional Epithelial Cells Few /hpf (0-Rare)
== END ==
LOC: LAB 14:54 → LAB SHORT 14:54
PROVIDERS: Physician Assistant
DX: N31.9 Neuromuscular dysfunction of bladder, unspecified (principal); L24.A2 Irritant contact dermatitis due to fecal, urinary or dual incontinence; Z46.6 Encounter for fitting and adjustment of urinary device
CPT/HCPCS: 81001; 87077; 87086; 87186

== ENCOUNTER 2024-07-10 11:33 | Inpatient (IN) | payer OTHER ==
[~2024-07-10] VITALS: Ht 152.4 cm; Wt 99.3 kg
[2024-07-10 12:33] LABS: BASOPHILS ABSOLUTE AUTO 0.06 K/mm3 (0.00-0.23); BASOPHILS PERCENT AUTO 1 % (0-2); EOSINOPHILS ABSOLUTE AUTO 0.25 K/mm3 (0.00-0.68); EOSINOPHILS PERCENT AUTO 3 % (0-6); Hematocrit 40.9 % (33.0-51.0); Hemoglobin 12.4 g/dL (11.5-16.0); IMMATURE GRAN ABSOLUTE AUTO 0.07 K/mm3 (0.00-0.10); IMMATURE GRAN PERCENT AUTO 1 % (0-1); LYMPHOCYTES ABSOLUTE AUTO 1.26 K/mm3 (0.84-5.20); LYMPHOCYTES PERCENT AUTO 12 % (21-46); MONOCYTES ABSOLUTE AUTO 0.66 K/mm3 (0.16-1.47); MONOCYTES PERCENT AUTO 7 % (4-13); Mean Corpuscular HGB 26.8 pg (26.0-34.0); Mean Corpuscular HGB Conc 30.3 g/dL (31.5-36.5); Mean Corpuscular Volume 89 fL (80-100); Mean Platelet Volume 11.4 fL (9.1-12.4); NEUTROPHILS PERCENT AUTO 77 % (41-73); Platelet Count 136 K/mm3 (150-400); RDW Coefficient Variation 16.1 % (11.7-14.2); Red Blood Cell Count 4.62 M/mm3 (3.80-5.20)
[2024-07-10 12:49] LABS: Albumin, Blood 3.2 g/dL (3.4-5.0); Albumin/Globulin Ratio 0.7 (0.8-1.8); Bilirubin, Total 0.4 mg/dL (0.1-1.0); Bun/Creatinine Ratio 20.5 (12.0-20.0); Calcium, Blood 9.4 mg/dL (8.5-10.1); Creatinine, Blood 0.78 mg/dL (0.40-1.00); Globulin, Blood 4.9 g/dL (2.2-4.0); Potassium, Blood 3.9 mmol/L (3.5-5.5); Total Protein, Blood 8.1 g/dL (6.4-8.2)
[2024-07-10 14:56] LABS: Source, Urine Foley catheter
[2024-07-10 15:00] LABS: Appearance, Urine Hazy (Clear); Bilirubin, Urine Neg (Neg); Blood, Urine 2+ (Neg); Color, Urine Yellow (P-Yellow); Glucose Qualitative, Urine Neg (Neg); Ketones, Urine Neg (Neg); Leukocyte Esterase, Urine 3+ (Neg); Nitrite, Urine Pos (Neg); Protein, Urine 3+ (Neg); Specific Gravity, Urine 1.025 (1.003-1.022); Urobilinogen, Urine NORM (Normal)
[2024-07-10 15:12] LABS: White Blood Cells, Urine 50-100 /hpf (0-5)
[2024-07-10 15:13] LABS: Amorphous Light (0-Heavy); Bacteria Many /hpf; Squamous Epithelial Cells Few /hpf (Few)
[2024-07-10 15:14] LABS: Calcium Oxalate Crystals Rare /hpf
[2024-07-10 15:15] LABS: Renal Epithelial Rare /hpf (0-Rare)
[2024-07-10] MEDS ORDERED: Meropenem 1,000 MG in NS 100 ML IV ONE (15:35)
[2024-07-10] MEDS ORDERED: NS 1,000 ML IV SCH (16:40)
[2024-07-10] MEDS ORDERED: Acetaminophen 325 MG TABLET PO PRN (16:50)
[2024-07-10] MEDS ORDERED: Meropenem 1,000 MG in NS 100 ML IV SCH (17:00)
[2024-07-10 19:51] VITALS: BP 132/73
[2024-07-10] MEDS ORDERED: Famotidine 20 MG Tab PO SCH (21:00)
[2024-07-10] MEDS ORDERED: Gabapentin 300 MG Cap PO SCH (21:00)
[2024-07-10] MEDS ORDERED: Lactobacil 2-S.Thermo-Bifido 1 1 Cap PO SCH (21:00)
[2024-07-10] MEDS ORDERED: NS 250 ML IV PRN (23:35)
[2024-07-11 05:17] VITALS: BP 131/75
--- NOTE | 2024-07-11 05:47 | NUR ---
SHIFT SUMMARY: Pt admitted for UTI and is a full code. Is alert and able to make needs known. ADLs have been mostly 1p but did not get out of bed. On ISO for ESBL. stated that she did have some low level pain but was managed with positioning. Folly intact and draining clear so urine.
[2024-07-11 08:17] VITALS: BP 133/61
[2024-07-11] MEDS ORDERED: Enoxaparin 40 MG/0.4 ML SYR SC SCH (09:00)
[2024-07-11] MEDS ORDERED: Aspirin/Caffeine/Butalbital 1 CAP PO PRN (12:25)
[2024-07-11] MEDS ORDERED: Cyclobenzaprine HCl 10 MG Tab PO PRN (12:25)
--- NOTE | 2024-07-11 18:06 | NUR ---
SHIFT SUMMARY: PT A&O X4. PLEASANT AND COOPERATIVE WITH CARE. PT RECEIVED IV DOSES OF ABX W/O COMPLICATIONS. WOUNDS ON BOTTOM AND UPPER LEG DISCUSSED WITH DR. LISA. WOUND ORDERS IN PLACE AND WOUNDS CHANGED PER ORDERS. WALSH IN PLACE DRAINING YELLOW URINE TO GRAVITY. PT C/O PAIN IN TAILBONE. ROTATED FREQUENTLY T/O SHIFT. CARE MANAGEMENT CONSULT NEEDS TO BE COMPLETED FOR PT TO RECEIVE OUTPT ABX. CALL LIGHT IN REACH. BED IN LOWEST POSITION.
[2024-07-11 18:19] VITALS: BP 154/78
[2024-07-11 19:13] VITALS: BP 111/62
[2024-07-11] MEDS ORDERED: Arginine/Glutamine/Calcium Hmb 1 Packet PO SCH (21:00)
[2024-07-11] MEDS ORDERED: Ascorbic Acid 250 MG Chew PO SCH (21:00)
[2024-07-12 04:51] VITALS: BP 134/82
--- NOTE | 2024-07-12 05:54 | NUR ---
SHIFT SUMMARY: Pt admitted for UTI and is a full code. Is alert and able to make needs known. ADLs have been mostly 1p but did not get out of bed. On ISO for ESBL. stated that she did have some low level pain but was managed with positioning and PRN medications. Granda intact and draining clear so urine.
[2024-07-12 08:40] VITALS: BP 125/71
[2024-07-12] MEDS ORDERED: Zinc Sulfate 220 MG Cap (Provides 50MG) PO SCH (09:00)
[2024-07-12] MEDS ORDERED: Multivitamins 1 Tab PO SCH (09:00)
[2024-07-12] MEDS ORDERED: Spironolactone 25 MG Tab PO SCH (09:00)
[2024-07-12 11:05] LABS: BASOPHILS ABSOLUTE AUTO 0.05 K/mm3 (0.00-0.23); BASOPHILS PERCENT AUTO 1 % (0-2); EOSINOPHILS ABSOLUTE AUTO 0.19 K/mm3 (0.00-0.68); EOSINOPHILS PERCENT AUTO 4 % (0-6); Hematocrit 37.5 % (33.0-51.0); Hemoglobin 11.2 g/dL (11.5-16.0); IMMATURE GRAN ABSOLUTE AUTO 0.03 K/mm3 (0.00-0.10); IMMATURE GRAN PERCENT AUTO 1 % (0-1); LYMPHOCYTES ABSOLUTE AUTO 0.97 K/mm3 (0.84-5.20); LYMPHOCYTES PERCENT AUTO 18 % (21-46); MONOCYTES ABSOLUTE AUTO 0.36 K/mm3 (0.16-1.47); MONOCYTES PERCENT AUTO 7 % (4-13); Mean Corpuscular HGB 27.1 pg (26.0-34.0); Mean Corpuscular HGB Conc 29.9 g/dL (31.5-36.5); Mean Corpuscular Volume 91 fL (80-100); Mean Platelet Volume 11.4 fL (9.1-12.4); NEUTROPHILS PERCENT AUTO 70 % (41-73); Platelet Count 113 K/mm3 (150-400); RDW Coefficient Variation 16.4 % (11.7-14.2); RDW Standard Deviation 53.8 fL (35.1-46.3); Red Blood Cell Count 4.14 M/mm3 (3.80-5.20)
[2024-07-12 11:52] LABS: Albumin, Blood 2.9 g/dL (3.4-5.0); Albumin/Globulin Ratio 0.6 (0.8-1.8); Bilirubin, Total 0.3 mg/dL (0.1-1.0); Bun/Creatinine Ratio 29.3 (12.0-20.0); Calcium, Blood 8.6 mg/dL (8.5-10.1); Creatinine, Blood 0.62 mg/dL (0.40-1.00); Globulin, Blood 4.5 g/dL (2.2-4.0); Potassium, Blood 3.8 mmol/L (3.5-5.5); Total Protein, Blood 7.4 g/dL (6.4-8.2)
[2024-07-12 16:54] VITALS: BP 111/75
--- NOTE | 2024-07-12 17:23 | NUR ---
SHIFT SUMMARY NO ACUTE CHANGES, A/Ox4, ABLE TO MAKE NEEDS KNOWN, USES CALL LIGHT APPROPRIATELY. WOUND DRESSING CHANGES COMPLETED BY POLLY THORPE. NEW IV PLACED DUE TO PREVIOUS IV BECOMING INFILTRATED. GOOD APPETITE. INDWELLING CATHETER CARE COMPLETED USING CATH CLOTHS. PT DENIES PAIN OR DISTRESS. PT ON RA T/O SAYING SATING ABOVE 92%, USES CPAP HS. SCD IN PLACE T/O SHIFT. IV ANTIBIOTICS INFUSED PER ORDERS. PER CARE MANAGMENT PT WILL FINISH ABX THERAPY HERE DUE TO INSURANCE APPROVAL FOR SNF MAY TAKE UP TO 3 DAYS. PT CURRENTLY RESTING IN HOSPITAL BED WITH BED IN LOWEST POSITION AND CALL LIGHT WITHIN REACH.
[2024-07-12 20:01] VITALS: BP 108/69
[2024-07-13 03:10] VITALS: BP 142/81
[2024-07-13 07:35] VITALS: BP 152/79
--- NOTE | 2024-07-13 08:42 | NUR ---
SHIFT SUMMARY NOC. PT ADMIT FOR UTI AND RECEIVING ABX. PT A/O X3, PT FORGETFUL AND ANXIOUS AT START OF SHIFT. PT MADE MULTIPLE PHONE CALLS TO OTHER AGENCIES LETTING THEM KNOW THAT SHE IS ADMITTED TO HOSPITAL. THESE AGENCIES CALLED AND SPOKE WITH FURNITURE MOVER HELPER AND NOTIFIED THIS RN OF SITUATION. PT WALSH PAITENT AND DRAINING TO GRAVITY. PT MAKES NEEDS KNOWN, CALL LIGHT IN REACH.
[2024-07-13] MEDS ORDERED: Ondansetron 4 MG SoluTab MM PRN (10:45)
--- NOTE | 2024-07-13 17:24 | NUR ---
SHIFT SUMMARY ALER AND ORIENTED X3-4, FORGETFUL AT TIMES. PATIENT PLEASANT AND COOPERATIVE WITH CARE. WOUND DRESSING CHANGED PER ORDER. MEDICATION ADMINISTERED PER EMAR. PATIENT IS ABLE TO MAKE NEEDS KNOWN. WALSH CATHETER CARE COMPLETED. CALL LIGHT WITHIN REACH AND BED IN LOWEST POSITION. REPOSITION Q2H.
--- NOTE | 2024-07-13 17:35 | NUR ---
STUDENT NURSE DOCUMENTATION THIS NURSE WORKED [id number] WITH THE STUDENT NURSE AND AGREES WITH ALL OF THEIR DOCUMENTATION.
[2024-07-13 19:53] VITALS: BP 110/75
[2024-07-14 04:28] VITALS: BP 120/73
--- NOTE | 2024-07-14 05:22 | NUR ---
SHIFT SUMMARY: PT AOX4, PARTIAL PARAPALEGIC IND IN BED AND ABLE TO ASSIST IN CARE. PT HAS CHRONIC WALSH WITH GOOD OUTPUT. NO LEAKAGE NOTED. PT HAS SOME WOUNDS, WHICH ARE DRESSED AND PT TURNED. COMPLAINING OF SOME BACK PAIN MEDICATED PER EMR AND REPOSITIONED. TOLERATING MEDICATIONS WELL. CALLS APPROPRIATELY AND IS ABLE TO MAKE NEEDS KNOWN. TOLERATING CPAP WELL. NO ACUTE OVERNIGHT EVENTS. PT IN BED RESTING, BED IN LOWEST POSITION, CALL LIGHT IN REACH. CONTNIUING CARE.
[2024-07-14 05:57] LABS: BASOPHILS ABSOLUTE AUTO 0.04 K/mm3 (0.00-0.23); BASOPHILS PERCENT AUTO 1 % (0-2); EOSINOPHILS ABSOLUTE AUTO 0.19 K/mm3 (0.00-0.68); EOSINOPHILS PERCENT AUTO 2 % (0-6); Hemoglobin 11.7 g/dL (11.5-16.0); IMMATURE GRAN ABSOLUTE AUTO 0.08 K/mm3 (0.00-0.10); IMMATURE GRAN PERCENT AUTO 1 % (0-1); LYMPHOCYTES ABSOLUTE AUTO 1.38 K/mm3 (0.84-5.20); LYMPHOCYTES PERCENT AUTO 18 % (21-46); MONOCYTES ABSOLUTE AUTO 0.68 K/mm3 (0.16-1.47); MONOCYTES PERCENT AUTO 9 % (4-13); Mean Corpuscular HGB 27.1 pg (26.0-34.0); Mean Corpuscular Volume 90 fL (80-100); Mean Platelet Volume 12.4 fL (9.1-12.4); NEUTROPHILS ABSOLUTE AUTO 5.48 K/mm3 (1.96-9.15); NEUTROPHILS PERCENT AUTO 70 % (41-73); Platelet Count 117 K/mm3 (150-400); RDW Coefficient Variation 16.2 % (11.7-14.2); RDW Standard Deviation 53.1 fL (35.1-46.3); Red Blood Cell Count 4.32 M/mm3 (3.80-5.20); White Blood Cell Count 7.85 K/mm3 (4.00-11.30)
[2024-07-14 06:26] LABS: Bun/Creatinine Ratio 50.4 (12.0-20.0); Calcium, Blood 9.4 mg/dL (8.5-10.1); Creatinine, Blood 0.6 mg/dL (0.40-1.00); Potassium, Blood 4.4 mmol/L (3.5-5.5)
[2024-07-14 07:28] VITALS: BP 112/61
[2024-07-14] MEDS ORDERED: CYCL10 PO (12:35)
[2024-07-14] MEDS ORDERED: BUTALB-ACETAMI1 EAC5 PO (12:36)
[2024-07-14 15:43] VITALS: BP 94/83
--- NOTE | 2024-07-14 18:05 | NUR ---
SHIFT SUMMARY PATIENT ALERT AND ORIENTED 3-4, NO ACUTE CHANGE THROUGHOUT THE SHIFT. PATIENT MAKE NEEDS KNOWN. MEDICATED PER EMAR. REPOSITION PATIENT Q2H. PLESANT AND COOPERATIVE WITH CARE. CALL LIGHT WITHIN REACH AND BED IN LOWEST POSITION.
--- NOTE | 2024-07-14 18:16 | NUR ---
STUDENT NURSE DOCUMENTATION THIS NURSE WORKED [id number] WITH THE STUDENT NURSE THE ENTIRE SHIFT. THIS NURSE AGREES WITH ALL OF HER DOCUMENTATION.
[2024-07-14 19:49] VITALS: BP 114/74
[2024-07-15 03:08] VITALS: BP 108/65
--- NOTE | 2024-07-15 04:09 | NUR ---
SHIFT SUMMARY PATIENT ALERT AND ORIENTED X 4 HAS PARTIAL PARAPHLEGIA,SHE IS BED ENGLISH.HAS SACRAL WOUND ALREADY ASSESSED AND DRESSED ,PATIENT HAD BOWEL MOVEMENT, COMPLAIN OF BACK PAIN ,MEDICATED PER EMAR,REPOSITIONED, SLEPT WELL BLADDER CARE DONE, BED LOWEST POSITION AND CALL LIGHT IN REACH.
[2024-07-15 05:37] LABS: BASOPHILS ABSOLUTE AUTO 0.05 K/mm3 (0.00-0.23); BASOPHILS PERCENT AUTO 1 % (0-2); EOSINOPHILS PERCENT AUTO 3 % (0-6); Hematocrit 37.9 % (33.0-51.0); Hemoglobin 11.3 g/dL (11.5-16.0); IMMATURE GRAN ABSOLUTE AUTO 0.07 K/mm3 (0.00-0.10); IMMATURE GRAN PERCENT AUTO 1 % (0-1); LYMPHOCYTES ABSOLUTE AUTO 1.21 K/mm3 (0.84-5.20); LYMPHOCYTES PERCENT AUTO 16 % (21-46); MONOCYTES ABSOLUTE AUTO 0.64 K/mm3 (0.16-1.47); MONOCYTES PERCENT AUTO 8 % (4-13); Mean Corpuscular HGB 27.1 pg (26.0-34.0); Mean Corpuscular HGB Conc 29.8 g/dL (31.5-36.5); Mean Corpuscular Volume 91 fL (80-100); Mean Platelet Volume 11.7 fL (9.1-12.4); NEUTROPHILS ABSOLUTE AUTO 5.59 K/mm3 (1.96-9.15); NEUTROPHILS PERCENT AUTO 72 % (41-73); Platelet Count 113 K/mm3 (150-400); RDW Coefficient Variation 16.1 % (11.7-14.2); Red Blood Cell Count 4.17 M/mm3 (3.80-5.20); White Blood Cell Count 7.76 K/mm3 (4.00-11.30)
[2024-07-15 06:16] LABS: Bun/Creatinine Ratio 39.6 (12.0-20.0); Calcium, Blood 9.5 mg/dL (8.5-10.1); Creatinine, Blood 0.63 mg/dL (0.40-1.00); Potassium, Blood 3.9 mmol/L (3.5-5.5)
[2024-07-15 09:02] VITALS: BP 123/67
--- NOTE | 2024-07-15 12:56 | NUR ---
DISCHARGE NOTE PT DISCHARGED TO HOME, PICKED UP BY [facility]. PERSONAL BELONGINGS RETURNED. IV REMOVED. NO NEW MEDICATIONS. PERSONAL WC PROVIDED TO PT FOR TRANSPORT. DISCHARGE INFORMATION AND EDUCATION PROVIDED AND REVIEWED WITH THE PT.
== END 2024-07-15 12:55 | disposition home health service (06) | DRG 699 ==
LOC: ER 11:33 → MEDS 11:34 → ERHOLD 11:34 → MEDS 18:22
PROVIDERS: Internal Medicine; Student in an Organized Health Care Education/Training Program; ADMIT Family Medicine
DX: T83.511A Infection and inflammatory reaction due to indwelling urethral catheter, initial encounter (principal); G82.22 Paraplegia, incomplete; Z68.41 Body mass index [BMI] 40.0-44.9, adult; Z16.12 Extended spectrum beta lactamase (ESBL) resistance; I50.32 Chronic diastolic (congestive) heart failure; R65.10 Systemic inflammatory response syndrome (SIRS) of non-infectious origin without acute organ dysfunction; K21.9 Gastro-esophageal reflux disease without esophagitis; G43.909 Migraine, unspecified, not intractable, without status migrainosus; B96.20 Unspecified Escherichia coli [E. coli] as the cause of diseases classified elsewhere; I44.1 Atrioventricular block, second degree; I27.20 Pulmonary hypertension, unspecified; K74.60 Unspecified cirrhosis of liver; K75.81 Nonalcoholic steatohepatitis (NASH); I11.0 Hypertensive heart disease with heart failure; E78.5 Hyperlipidemia, unspecified; E66.01 Morbid (severe) obesity due to excess calories; B95.61 Methicillin susceptible Staphylococcus aureus infection as the cause of diseases classified elsewhere; B95.2 Enterococcus as the cause of diseases classified elsewhere; L89.312 Pressure ulcer of right buttock, stage 2; G47.30 Sleep apnea, unspecified; L89.892 Pressure ulcer of other site, stage 2; Z99.3 Dependence on wheelchair; Z88.5 Allergy status to narcotic agent; Z88.8 Allergy status to other drugs, medicaments and biological substances; Z91.018 Allergy to other foods; Z88.1 Allergy status to other antibiotic agents; Z79.899 Other long term (current) drug therapy; Z90.89 Acquired absence of other organs; Z87.19 Personal history of other diseases of the digestive system; Z98.890 Other specified postprocedural states; Z79.2 Long term (current) use of antibiotics; L89.152 Pressure ulcer of sacral region, stage 2; Y84.6 Urinary catheterization as the cause of abnormal reaction of the patient, or of later complication, without mention of misadventure at the time of the procedure
CPT/HCPCS: 36415; 76770; 80048; 80053; 81001; 85025; 87077; 87086; 87186; 94660; 94762; 96365; 96366; 96372; 96376; 99284-25; A9270; G0378; J1650; J2185; J7030; J7050

== ENCOUNTER → 2024-08-17 | Outpatient (CLI) | payer OTHER ==
[~2024-08-17] MED LIST changes: +BUTALB-ACETAMI1 EAC5 PO; +CYCL10 PO
[2024-08-17 12:08] LABS: Source, Urine Straight Cath
[2024-08-17 13:15] LABS: Appearance, Urine Cloudy (Clear); Bilirubin, Urine Neg (Neg); Blood, Urine 1+ (Neg); Color, Urine Yellow (P-Yellow); Glucose Qualitative, Urine Neg (Neg); Ketones, Urine Neg (Neg); Leukocyte Esterase, Urine 3+ (Neg); Nitrite, Urine Pos (Neg); Protein, Urine 1+ (Neg); Specific Gravity, Urine 1.015 (1.003-1.022); Urobilinogen, Urine NORM (Normal); pH, Urine 6.5 (5.0-8.0)
[2024-08-17 13:24] LABS: Squamous Epithelial Cells Mod /hpf (Few); White Blood Cells, Urine 50-100 /hpf (0-5)
[2024-08-17 13:25] LABS: Bacteria Many /hpf
== END ==
LOC: LAB SHORT 11:40 → LAB 11:40
PROVIDERS: Physician Assistant
DX: Z46.6 Encounter for fitting and adjustment of urinary device (principal); N39.0 Urinary tract infection, site not specified; L24.A2 Irritant contact dermatitis due to fecal, urinary or dual incontinence; B96.89 Other specified bacterial agents as the cause of diseases classified elsewhere
CPT/HCPCS: 81001; 87086

== ENCOUNTER → 2025-02-09 | Outpatient (CLI) | payer OTHER ==
[2025-02-09 12:46] LABS: Source, Urine Straight Cath
[2025-02-09 15:58] LABS: Bilirubin, Urine Neg (Neg); Color, Urine Yellow (P-Yellow); Glucose Qualitative, Urine Neg (Neg); Ketones, Urine 1+ (Neg); Leukocyte Esterase, Urine 2+ (Neg); Protein, Urine 3+ (Neg); Specific Gravity, Urine 1.010 (1.003-1.022); Urobilinogen, Urine NORM (Normal)
== END ==
LOC: LAB 12:42 → LAB SHORT 12:42
PROVIDERS: Physician Assistant
DX: L24.A2 Irritant contact dermatitis due to fecal, urinary or dual incontinence (principal); N31.9 Neuromuscular dysfunction of bladder, unspecified
CPT/HCPCS: 81001; 87077; 87086; 87186